=== PATIENT | female | born 1935 | race Caucasian/White ===

== ENCOUNTER → 2024-02-14 | Outpatient (CLI) | payer MEDICARE, MEDICAID, SELFPAY | END | disposition home or self-care (01) | PROVIDERS: Referring Provider Internal Medicine Cardiovascular Disease; Visit Provider Internal Medicine Cardiovascular Disease | DX: I50.22 Chronic systolic (congestive) heart failure (principal) | CPT/HCPCS: 36415; 80069 ==

== ENCOUNTER 2024-05-09 23:45 | Inpatient (IN) | payer MEDICARE, MEDICAID, SELFPAY ==
[2024-05-09 23:49] VITALS: BP 153/97; PULSE 106; RESP 24; O2SAT 93
[2024-05-10] VITALS (18 sets, daily range): BP systolic 108–137; BP diastolic 67–89; PULSE 60–125; RESP 15–28; TEMP 36.1–38.4; O2SAT 92–100; BMI 23.9
--- NOTE | 2024-05-10 00:38 | XR_ITS ---
Examination: AP chest single view Technique one AP portable semiupright chest single view Exam date and time: May 10, 2024 0114 hours Comparison December 17, 2023 INDICATIONS: Shortness of breath today. FINDINGS: Moderate CHF Enlarged cardiac contour with prominent vascular congestion and perihilar edema Consider superimposed pneumonia at the right base Cardiac leads partly visualized IMPRESSION: Moderate CHF Suspicious for superimposed pneumonia right
[2024-05-10 01:14] LABS: Basophils % (Auto) 1 % (0-2.5); Eosinophils % (Auto) 0 % (0-10); Hematocrit 28.4 % (36.0-46.0); Hemoglobin 9.4 g/dL (12.0-16.0); Immature Granulocytes % (Auto) 1 % (0-0); Immature Granulocytes Auto 0.02 Thou/mm3 (0.00-0.00); Lymphocytes # (Auto) 0.7 Thou/mm3 (1.0-4.8); Lymphocytes % (Auto) 17 % (10-50); Mean Corpuscular HGB Conc 33.1 g/dl (31.0-37.0); Mean Corpuscular Hemoglobin 34.4 pg (25.0-35.0); Mean Corpuscular Volume 104 fL (80-100); Monocytes # (Auto) 0.3 Thou/mm3 (0.0-0.8); Monocytes % (Auto) 8 % (0-12); Neutrophils # (Auto) 3.1 Thou/mm3 (1.8-7.7); Neutrophils % (Auto) 74 % (37-80); Nucleated Red Blood Cell % 0 /100 WBC (0); Platelet Count 147 Thou/mm3 (140-440); RDW Standard Deviation 65.2 fL (36.4-46.3); Red Blood Count 2.73 Miln/mm3 (4.00-5.20); White Blood Count 4.2 Thou/mm3 (3.6-11.0)
[2024-05-10 01:33] LABS: B-Type Natriuretic Peptide > 3280 pg/mL (0-100)
[2024-05-10 03:10] LABS: Alanine Aminotransferase 12 U/L (10-49); Albumin, Serum 4.8 gm/dL (3.4-4.8); Alkaline Phosphatase 47 U/L (46-116); Anion Gap 9 (7-16); Aspartate Amino Transferase 29 U/L (0-34); BUN/Creatinine Ratio 24 Ratio (12-20); Bilirubin,Total 0.5 mg/dL (0.3-1.2); Blood Urea Nitrogen 34 mg/dL (9-23); Calcium 9.7 mg/dL (8.3-10.6); Calcium (Corrected) 9.7 mg/dL (8.5-10.1); Carbon Dioxide 30.5 mMol/L (20.0-31.0); Chloride 98 mMol/L (98-107); Creatinine (Component) 1.4 mg/dL (0.6-1.3); Globulin 2.4 gm/dL (2.3-3.5); Glucose 139 mg/dL (74-106); Lipase 49 U/L (12-53); Osmolality,Calculated 283 (275-295); Potassium 4.2 mMol/L (3.4-5.1); Sodium 137 mMol/L (136-145); Total Protein 7.2 gm/dL (5.7-8.2); Troponin I 0.023 ng/mL (0.0-0.045); eGFR 36 See Note
--- NOTE | 2024-05-10 05:20 | PD.EDRME ---
Rapid Medical Screening Exam RME Arrival date/time: 05/09/24 23:45 Chief Complaint: Shortness of Breath/Dyspnea Vital signs: Vital Signs Pulse Rate 106 H 05/09/24 23:49 Respiratory Rate 24 H 05/09/24 23:49 Blood Pressure 153/97 H 05/09/24 23:49 Pulse Oximetry (%) 93 L 05/09/24 23:49 Oxygen Delivery Method Oxy Mask 05/09/24 23:49 Oxygen Flow Rate 15 05/09/24 23:49 Vital signs reviewed by provider: Yes E Narrative: 88-year-old female with history of CHF, COPD, atrial fibrillation coming in with 1 week history of shortness of breath.
[2024-05-10] MEDS: MethylPREDNISolone SOD SUCC 62.5 MG/ML 2ML VIAL 125 MG IVP (05:44)
[2024-05-10] MEDS: FUROSEMIDE INJ 10 MG/ML 4ML VIAL 40 MG IVP (05:45)
--- NOTE | 2024-05-10 05:59 | PC.NURSE ---
PATIENT HAS A DIME SIZE STAGE II ULCER ON RIGHT BUTTOCK. AREA CLEANED AND DRSG APPLIED. DAUGHTER TOLD TO MAKE APPOINTMENT WITH PMD FOR HIM TO MAKE RECOMMENDATIONS FOR MORE CARE.
--- NOTE | 2024-05-10 06:01 | PC.NURSE ---
purewick in place
--- NOTE | 2024-05-10 07:12 | PD.EDSOB ---
ED SOB =RME/HPI General Chief Complaint: Shortness of Breath/Dyspnea Stated Complaint: SOB Time Seen by Provider: 05/10/24 08:38 Arrival date/time: 05/09/24 23:45 RME / HPI RME / HPI Narrative: 88-year-old female with history of CHF, COPD, atrial fibrillation coming in with 1 week history of shortness of breath. DR. CHAN MAIN ED EVALUATION 88 year old female with history of COPD on 3-5L home oxygen, HFrEF 30-35% 12/2023, AFib, s/p pacemaker placement, hypertension presents to the ED for evaluation of shortness of breath today. Per daughter, patient has felt short of breath for 1 week. State at home patient is using her oxygen and nebulizer without improvement. Last night noticed leg swelling and worsening shortness of breath with gurgling sounds per daughter, prompting ED visit. Accompanied by a cough although reports is chronic and unchanged. Per EMS triage note, on scene patient was saturating 52% on 5L nasal cannula and placed on 15L Oxy Mask. Patient denies Denies fever, chills, sweating. Denies chest pain. Denies nausea, vomiting, diarrhea, constipation. Denies dysuria, urinary frequency and urgency. Related Data Home Medications ?Medication ?Instructions ?Recorded ?Confirmed amiodarone 200 mg tablet 200 mg PO BID 07/29/20 12/13/23 carvedilol 3.125 mg tablet (Coreg) 3.125 mg PO BID 07/29/20 12/13/23 sacubitril 24 mg-valsartan 26 mg 1 tab PO BID 07/29/20 12/13/23 tablet (Entresto) meclizine 25 mg tablet 25 mg PO QID PRN Dizziness 11/10/22 12/13/23 Previous Rx's ?Medication ?Instructions ?Recorded bumetanide 1 mg tablet 1 mg PO QDAY #14 tabs 11/12/22 Allergies Allergy/AdvReac Type Severity Reaction Status Date / Time ceftriaxone AdvReac Severe Unresponsiv Verified 05/10/24 09:02 e Review of Systems Review of Systems Narrative Review of Systems: GEN: No fever, no chills, no weight loss EYES: No discharge, no visual changes, no pain HEENT: No ear pain, no congestion, no sore throat PULM: +cough, +shortness of breath CV: No chest pain, no palpitations GI: No nausea, no vomiting, no diarrhea, no pain, no constipation : No frequency, no urgency, no dysuria MUSC/SKEL: +leg swelling. No joint pain, no back pain SKIN: No rash PSYCH: No hallucinations, no depression HEME/LYMPH: No easy bleeding or bruising tendencies NEURO: No weakness, no headache Past Medical History Past Medical History CARDIAC: Positive Atrial Fibrillation, Congestive Heart Failure, Edema and Hypertension RESPIRATORY: Positive Chronic Obstructive Pulmonary Disease (COPD) and Pneumonia GASTROINTESTINAL: Positive Gastroesophageal Reflux Disease REPRODUCTIVE: Positive Previous Pregnancies MUSCULOSKELETAL: Positive Musculoskeletal Disorders, Arthritis and Fractures ENT: Positive Cataracts OTHER HISTORY: Positive Hospitalization, Falls, Chicken Pox, Measles and Mumps Family History FAMILY HISTORY: Positive Family Cardiac Disorders and Family Cancer Surgical History SURGICAL: Positive Cardiac Surgery, Pacemaker, Angiogram and Hysterectomy Social History SMOKING STATUS: Never smoker SECOND HAND EXPOSURE: No SUBSTANCE USE: does not use ED Exam Narrative Physical exam: GENERAL APPEARANCE: alert and oriented x 4, well-developed, well-nourished, appears to be in respiratory distress HEENT: Normocephalic, atraumatic; pupils equal, round, reactive to light; EOMI; mucous membranes pink, moist; oropharynx clear NECK: Supple LUNGS: Coarse breath sounds, rhonchi; no wheezes, no rales HEART: Regular rate, regular rhythm; normal S1, S2; no murmurs ABDOMEN: non distended; normal BS; soft, no tenderness, no guarding, no rebound; no masses, no organomegaly, no hernia BACK: no CVA tenderness EXTREMITIES: atraumatic;BLE 2+ pitting edema NEUROLOGIC: awake; alert and oriented x4; cranial nerves II-XII grossly intact; no focal sensory or motor deficits PSYCHIATRIC: appropriate mood and affect SKIN: warm, dry, normal color; no rashes Course Course Course Narrative: chest xray ordered to help determine etiology of shortness of breath. Patient spiked a fever of 101.2 while in the ED. Will add on sepsis work-up. Quality Measures Current suspected stage: sepsis Possible source: pulmonary Blood cultures ordered: completed in ED Antibiotic ordered: Yes Pertinent labs: 05/10/24 07:50 Lactic Acid 0.9 mMol/L (0.4-2.0) Procalcitonin 0.27 ng/ml (0.0-0.49) sepsis and none Orders Category Date Time Status Bedside COVID-19 Antigen Test NOW Care 05/10/24 07:11 Active Bedside Influenza A&B Antigen Test NOW Care 05/10/24 07:11 Completed EKG (ED ONLY) *Do not use* NOW Care 05/10/24 00:36 Completed EKG (ED Only) Stat Exams 05/10/24 00:36 Ordered XR chest 1V portable Stat Exams 05/10/24 00:38 Completed B-Type Natriuretic Peptide Stat Lab 05/10/24 00:53 Completed Blood Culture (Lab) Stat Lab 05/10/24 07:50 Received CBC Stat Lab 05/10/24 00:53 Completed Comprehensive Metabolic Panel Stat Lab 05/10/24 00:53 Completed Lactate (Lactic Acid) Stat Lab 05/10/24 07:50 Completed Lipase Stat Lab 05/10/24 00:53 Completed Procalcitonin Stat Lab 05/10/24 07:50 Completed Troponin I Stat Lab 05/10/24 00:53 Completed Urinalysis Stat Lab 05/10/24 07:08 Ordered Urine Culture Stat Lab 05/10/24 07:50 Received Acetaminophen Tab [Tylenol ES Tab] Med 05/10/24 07:09 Discontinued 1,000 mg PO X1 ONE Azithromycin Inj [Zithromax Inj] 500 mg Med 05/10/24 07:09 Discontinued Sodium Chloride 0.9% 250 ml [Ns] 250 ml IV X1 Furosemide Inj [Lasix Inj] Med 05/10/24 05:20 Discontinued 40 mg IVP X1 ONE MethylPREDNISolone.* [SoluMEDROL Inj] Med 05/10/24 05:21 Discontinued 125 mg IVP X1 ONE cefTRIAXone/D5w 1gm IV premix [Rocephin/D5w 1gm IV Med 05/10/24 09:00 Discontinued premix] 50 ml IV X1 Reevaluation(s) Reevaluation #1: We reviewed all the results, analysis, and treatment plans. Patient is amenable to admission. Time: 10:40 Vital Signs Vital signs: Vital Signs Pulse Rate 106 H 05/09/24 23:49 Respiratory Rate 24 H 05/09/24 23:49 Blood Pressure 153/97 H 05/09/24 23:49 Pulse Oximetry (%) 93 L 05/09/24 23:49 Oxygen Delivery Method Oxy Mask 05/09/24 23:49 Oxygen Flow Rate 15 05/09/24 23:49 Pulse ox was 93% on 15L Oxy Mask on arrival to ED. On reassessment at 07:45 hours patient is saturating 96% on 5L Oxy Mask which is adequate. Shortness of Breath / Dyspnea Patient data External records reviewed:: [facility] previous records (I reviewed admission 12/13/2023 through 12/20/2023 for AFib) and EMS form Clinical information provided by:: patient and family (Daughter) Social determinants that could affect healthcare access:: none Patient has the following chronic illnesses:: COPD on 3-5L home oxygen, HFrEF 30-35% 12/2023, AFib, s/p pacemaker placement, hypertension How is presenting disease/condition affected by chronic disease/condition?: exacerbated by Evaluation data The following diagnostics were reviewed and interpreted by me:: lab results, radiology exam(s) (CXR my interpretation: Pacemaker noted, right infiltrate, vascular congestion, cardiomegaly) and EKG tracing(s) Lab and/or radiology exams considered but not ordered:: None Interpretation Summary: Ordering Physician: Amber Cole MD Date of Service: 05/10/24 Procedure(s): XR chest 1V portable Accession Number(s): [id number] cc: Ricky Montanez MD; Alvarado Lerma MD; Amber Cole MD~ Examination: AP chest single view Technique one AP portable semiupright chest single view Exam date and time: May 10, 2024 0114 hours Comparison December 17, 2023 INDICATIONS: Shortness of breath today. FINDINGS: Moderate CHF Enlarged cardiac contour with prominent vascular congestion and perihilar edema Consider superimposed pneumonia at the right base Cardiac leads partly visualized IMPRESSION: Moderate CHF Suspicious for superimposed pneumonia right Dictated By: Alvarado Lerma MD Signed By: <Electronically signed by Alvarado Lerma MD in OV> 05/10/24 1016 DD/ 1015 TD/TT: 05/10/24 1015 Seconds Grader: DILCIA Medications / Prescriptions Medications or Prescriptions considered but not ordered:: None Medication administrations:: Medication Administration History Acetaminophen (Acetaminophen 325 Mg Tablet) 650 mg PO Q6H PRN PRN Reason: Fever >100.4 or mild pain 1-3 Stop: 06/09/24 10:44 Albuterol/Ipratropium (Albuterol/Ipratropium (Duoneb) Rt Ruma 3 Ml Nebu) 3 ml INH Q2HR PRN PRN Reason: SHORTNESS OF BREATH OR WHEEZE Stop: 06/09/24 10:44 Albuterol/Ipratropium (Albuterol/Ipratropium (Duoneb) Rt Ruma 3 Ml Nebu) 3 ml INH Q6HRRT WILLIE Stop: 06/09/24 12:59 Last Admin: 05/10/24 12:52 Dose: 3 ml Documented By: ARMAND Amiodarone HCl (Amiodarone Hcl 200 Mg Tablet) 200 mg PO BID [facility] Stop: 06/09/24 20:59 Amoxicillin (Amoxicillin 250 Mg Capsule) 500 mg PO BID [facility] Stop: 05/17/24 20:59 Azithromycin (Azithromycin 250 Mg Tablet) 250 mg PO QDAY [facility] Stop: 05/18/24 08:59 Bumetanide (Bumetanide Inj 0.25 Mg/Ml Vial 4 Ml) 1 mg IVP BID [facility] Stop: 06/09/24 20:59 Carvedilol (Carvedilol 3.125 Mg Tablet) 3.125 mg PO BIDWM [facility] Stop: 06/09/24 17:29 Enoxaparin Sodium (Enoxaparin Sod Inj 40 Mg/0.4 Ml Syringe) 40 mg SC QDAY [facility] Stop: 05/25/24 08:59 Sennosides (Senna Tablet) 1 tab PO BID PRN; Protocol PRN Reason: CONSTIPATION Stop: 06/09/24 10:49 Discontinued Medications Acetaminophen (Acetaminophen 500 Mg Tablet) 1,000 mg PO X1 ONE Stop: 05/10/24 07:10 Last Admin: 05/10/24 09:02 Dose: 1,000 mg Documented By: AM Bumetanide (Bumetanide Inj 0.25 Mg/Ml Vial 4 Ml) 1 mg IVP QDAY [facility] Stop: 06/09/24 14:44 Last Admin: 05/10/24 15:03 Dose: Not Given Documented By: DA Non-Admin Reason: Discontinued Furosemide (Furosemide Inj 10 Mg/Ml 4ml Vial) 40 mg IVP X1 ONE Stop: 05/10/24 05:21 Last Admin: 05/10/24 05:45 Dose: 40 mg Documented By: [place] Azithromycin 500 mg/ Sodium (Chloride) 250 mls @ 250 mls/hr IV X1 ONE Stop: 05/10/24 08:08 Last Infusion: 05/10/24 11:00 Dose: Infused Documented By: Admin: 05/10/24 09:04 Dose: 250 mls/hr Documented By: AM Ceftriaxone Sodium/Dextrose (Rocephin/D5w 1gm Iv Premix) 50 mls @ 100 mls/hr IV X1 ONE Stop: 05/10/24 09:29 Last Admin: 05/10/24 10:42 Dose: Not Given Documented By: AM Non-Admin Reason: Cancelled by Provider Levofloxacin/Dextrose (Levaquin Ivpb) 750 mg in 150 mls @ 100 mls/hr IV QDAY [facility] Stop: 05/17/24 14:44 Last Admin: 05/10/24 15:03 Dose: Not Given Documented By: DA Non-Admin Reason: Discontinued Methylprednisolone Sodium Succinate (Methylprednisolone Sod Succ 62.5 Mg/Ml 2ml Vial) 125 mg IVP X1 ONE Stop: 05/10/24 05:22 Last Admin: 05/10/24 05:44 Dose: 125 mg Documented By: KD Pantoprazole Sodium (Pantoprazole Inj 40 Mg Vial) 40 mg IVP QDAY [facility] Stop: 06/09/24 10:59 Last Admin: 05/10/24 12:51 Dose: 40 mg Documented By: AM Sodium Chloride (Sodium Chloride Rt 10% 15 Ml Nebu) 5 ml INH X1 ONE Stop: 05/10/24 15:03 See above Consultations Consultation(s) initiated? (list below): Yes Consultation #1 (Physician, Specialty, Details): I spoke with resident Dr. Arevalo working with Dr. Askew. Discussed patients PMHx, HPI, ED course, exam findings, labs, and radiology results. The hospitalist agree to accept the patient for admission. Time: 10:42 Diagnosis Shortness of Breath Differential Diagnosis: acute exacerbation of chronic obstructive airways disease, congestive heart failure and community acquired pneumonia Most likely diagnosis given after review of the tests above:: CHF exacerbation Pneumonia increase oxygen requirement Admission Indicated Admission indicated?: indicated Admission Request Was there a request for admission?: Yes Admission Attestation Admission request attestation: Discussed case with [] from Hospitalist service regarding admission. Discussed patients ED course, exam findings, labs, and radiology results. The Hospitalist [agrees,declines] to accept the patient for admission. Disposition Plan Disposition Plan: Admit Critical Care Time Critical Care Time Critical Care Time: Yes Total Critical Care Time (min.): 35 Attestation: The high probability of sudden, clinically significant deterioration in the patient's condition required the highest level of my preparedness to intervene urgently. The services I provided to this patient were to treat and/or prevent clinically significant deterioration. Services included the following: chart data review, reviewing nursing notes and/or old charts, documentation time, sql server consultant collaboration regarding findings and treatment options, medication orders and management, direct patient care, vital sign assessments and ordering, interpreting and reviewing diagnostic studies and lab tests. Aggregate critical care time includes only time during which I was engaged in work directly related to the patient's care, as described above, whether at bedside or elsewhere in the Emergency Department. It did not include time spent performing other reported procedures or the services of residents, students, nurses or physician assistants. Discharge Plan Plan Patient Disposition: Admit Acute Care w/in Hospital Problem List Clinical Impression: CHF exacerbation, Pneumonia
[2024-05-10 08:23] LABS: Lactate (Lactic Acid) 0.9 mMol/L (0.4-2.0)
[2024-05-10 08:57] LABS: Procalcitonin 0.27 ng/ml (0.0-0.49)
[2024-05-10] MEDS: ACETAMINOPHEN 500 MG TABLET 1000 MG PO (09:02)
[2024-05-10] MEDS: AZITHROMYCIN INJ 500 MG in SODIUM CHLORIDE 0.9% 250 ML 250 ML 250 MG IV (09:04)
[2024-05-10 12:02] LABS: Magnesium 1.8 mg/dL (1.6-2.6)
[2024-05-10] MEDS: PANTOPRAZOLE INJ 40 MG VIAL IVP (12:51)
[2024-05-10] MEDS: ALBUTEROL/IPRATROPIUM (Duoneb) RT SOL 3 ML NEBU INH ×2 (12:52→19:16)
--- NOTE | 2024-05-10 13:15 | ESHP_ITS ---
Documentation for date of: 05/10/24 [facility] History of Present Illness History of present illness: This is an 88-year-old female PMHx of CHF with EF 30-35% (12/2023), A-fib s/p pacemaker and defibrillator, COPD on 3 L home O2, HTN, presenting after 1 week of worsening swelling, shortness of breath and new onset cough started 2 days ago. History obtained from patient and daughter at bedside. Patient lives with daughter at home and was found desatting in the 80s at home despite home oxygen. He has been taking home daily FUROSEMIDE as prescribed, and started taking BUMEX PRN for worsening lower extremity edema. LE edema, initially improved with BUMEX however seems to have plateaued over the last few days. In addition, she has been having dry cough that started 2 days ago, however today feels more like a wet cough but unable to bring anything up. Last admission was in December 2023 where she is admitted for AHRF and treated for pneumonia and COPD/CHF exacerbation. She follows up with Dr. Mason outpatient who prescribed BUMEX as needed for lower extremity swelling. Review of system positive for subjective fever, orthopnea, SOB, productive cough, and extremity swelling as above. Denies headaches, chills, chest pain, palpitations, focal neurological deficits, loss of appetite, GI symptoms including pain or N/V/D/C, abnormal bleed, dysuria or hematuria. ED COURSE: T101.2, HR 106, BP 153/97, RR 24, satting 93% on 15 L Hgb 9.4 (baseline 10.5), no leukocytosis, PLT 147, no coagulopathies BNP greater than 3280, troponin negative, EKG A-fib with RVR, HR 114 CR 1.4, GFR 36, GLUCOSE 139 UA showed positive leukocyte esterase, WBC 15, rare bacteria CXR showed moderate CHF with suspected superimposed right-sided pneumonia ED gave FUROSEMIDE 40 mg x 1, METHYLPREDNISOLONE 125 x 1, CEFTRIAXONE and AZITHROMYCIN x 1. Hospitalist team was consulted. We will admit patient for AHRF in settings of CHF/COPD exacerbation versus pneumonia. PMHx: CHF, A-fib with pacemaker/defibrillator, COPD on home 3 L, HTN PSHx: Hysterectomy, L hip replacement, Knee replacement, bladder suspension MEDS: BUMEX, SPIRONOLACTONE, ENTRESTO, AMIODARONE, SYNMACORT, ALBUTEROL ALLERGIES: CEFTRIAXONE (unresponsive) SH: Denies tobacco, alcohol, or drug use Exam Vital Signs Temp Pulse Resp BP Pulse Ox O2 Del Method O2 Flow Rate 97.6 F 84 28 H 113/76 100 Oxy Mask 5 05/10/24 12:52 05/10/24 12:54 05/10/24 12:54 05/10/24 12:16 05/10/24 12:54 05/10/24 12:16 05/10/24 12:54 Narrative Exam GENERAL: Appearing elderly male, cachectic, on OxyMask, appears in mild distress due to SOB HEENT: NCAT.?SUKHDEV. Oral mucosa is moist. Patent Nares NECK: Supple, nontender, no thyromegaly, no meningismus, no JVD, no step offs CARDIOVASCULAR: RRR, no m/g/r LUNGS: Bilateral coarse breath sounds and rhonchi. Symmetrical chest rise. No intercostal subcostal retraction. ABDOMEN: Soft, flat, nontender. No guarding/rebound tenderness/masses. +BS EXTREMITIES: 2+ bilateral LE pitting edema with chronic venous stasis and senile purpura. Pulses intact bilaterally. SKIN: Warm and dry, no jaundice/rashes. MSK: No lumbar or midline, no CVA, no paraspinal muscle spasm or tenderness. NEURO: HUA x4, CN II-XII grossly intact.?No focal neurologic deficits. PSYCHIATRIC: Normal mood and affect, cooperative, no SI or HI or hallucinations. Results: Labs 05/10/24 00:53 05/10/24 00:53 Labs: Short CBC 05/10/24 Range/Units 00:53 WBC 4.2 (3.6-11.0) Thou/mm3 Hgb 9.4 L (12.0-16.0) g/dL Hct 28.4 L (36.0-46.0) % Plt Count 147 (140-440) Thou/mm3 BMP 05/10/24 00:53 Sodium 137 Potassium 4.2 Chloride 98 Carbon Dioxide 30.5 BUN 34 H Creatinine 1.4 H Glucose 139 H Calcium 9.7 Cardiac Enzymes 05/10/24 Range/Units 00:53 Troponin I 0.023 (0.0-0.045) ng/mL Liver Function 05/10/24 Range/Units 00:53 Total Bilirubin 0.5 (0.3-1.2) mg/dL AST 29 (0-34) U/L ALT 12 (10-49) U/L Alkaline Phosphatase 47 (46-116) U/L Albumin 4.8 (3.4-4.8) gm/dL Quality Measures Quality Measures sepsis Current suspected stage: sepsis Possible source: pulmonary Blood cultures ordered: completed in ED Antibiotic ordered: Yes and none Advance care planning discussed with:: patient and child Medications Home Medications and Allergies Home Medications ?Medication ?Instructions ?Recorded ?Confirmed ?Type amiodarone 200 mg tablet 200 mg PO BID 07/29/20 05/10/24 History carvedilol 3.125 mg tablet (Coreg) 3.125 mg PO BID 07/29/20 05/10/24 History sacubitril 24 mg-valsartan 26 mg 1 tab PO BID 07/29/20 05/10/24 History tablet (Entresto) meclizine 25 mg tablet 25 mg PO QID PRN Dizziness 11/10/22 05/10/24 History budesonide-formoterol HFA 160 1 puff inhalation QDAY PRN 05/10/24 05/10/24 History mcg-4.5 mcg/actuation aerosol Shortness Of Breath inhaler (Symbicort) bumetanide 1 mg tablet 1 mg PO QDAY 05/10/24 05/10/24 History spironolactone 25 mg tablet 25 mg PO QDAY 05/10/24 05/10/24 History Allergies Allergy/AdvReac Type Severity Reaction Status Date / Time ceftriaxone AdvReac Severe Unresponsiv Verified 05/10/24 09:02 e Visit Medications Acetaminophen (Acetaminophen 325 Mg Tablet) 650 mg PO Q6H PRN PRN Reason: Fever >100.4 or mild pain 1-3 Stop: 06/09/24 10:44 Albuterol/Ipratropium (Albuterol/Ipratropium (Duoneb) Rt Ruma 3 Ml Nebu) 3 ml INH Q2HR PRN PRN Reason: SHORTNESS OF BREATH OR WHEEZE Stop: 06/09/24 10:44 Albuterol/Ipratropium (Albuterol/Ipratropium (Duoneb) Rt Ruma 3 Ml Nebu) 3 ml INH Q6HRRT WILLIE Stop: 06/09/24 12:59 Last Admin: 05/10/24 12:52 Dose: 3 ml Pantoprazole Sodium (Pantoprazole Inj 40 Mg Vial) 40 mg IVP QDAY WILLIE Stop: 06/09/24 10:59 Last Admin: 05/10/24 12:51 Dose: 40 mg Sennosides (Senna Tablet) 1 tab PO BID PRN; Protocol PRN Reason: CONSTIPATION Stop: 06/09/24 10:49 Discontinued Medications Acetaminophen (Acetaminophen 500 Mg Tablet) 1,000 mg PO X1 ONE Stop: 05/10/24 07:10 Last Admin: 05/10/24 09:02 Dose: 1,000 mg Furosemide (Furosemide Inj 10 Mg/Ml 4ml Vial) 40 mg IVP X1 ONE Stop: 05/10/24 05:21 Last Admin: 05/10/24 05:45 Dose: 40 mg Azithromycin 500 mg/ Sodium (Chloride) 250 mls @ 250 mls/hr IV X1 ONE Stop: 05/10/24 08:08 Last Admin: 05/10/24 09:04 Dose: 250 mls/hr Ceftriaxone Sodium/Dextrose (Rocephin/D5w 1gm Iv Premix) 50 mls @ 100 mls/hr IV X1 ONE Stop: 05/10/24 09:29 Last Admin: 05/10/24 10:42 Dose: Not Given Methylprednisolone Sodium Succinate (Methylprednisolone Sod Succ 62.5 Mg/Ml 2ml Vial) 125 mg IVP X1 ONE Stop: 05/10/24 05:22 Last Admin: 05/10/24 05:44 Dose: 125 mg Assessment & Plan Plan In summary: 88-year-old female with PMHx of CHF, EF 30-35% (12/2023), A-fib s/p pacemaker/defibrillator, COPD on 3 L home oxygen, HTN, admitted for AHRF likely 2/2 CHF vs. COPD exacerbation, versus pneumonia. We started BUMEX, ANTIBIOTICS, and breathing treatment. Pending echocardiogram, cultures, and cardiology recommendations. Appreciate recommendation from cardiology. Acute on Chronic hypoxic respiratory failure 2/2: CHF exacerbation VS COPD exacerbation VS Sepsis 2/2 influenza A pneumonia Hx of CHF, EF 30?35 (12/2023) Presenting with 1 week of worsening orthopnea, SOB, LE edema, and cough. Initially dry cough then wet but unable to produce sputum. She is on home 3L oxygen, but found desatting in 80s. She restarted her PRN BUMEX with some improvement in edema initially. On exam, 2+ bilateral LE edema, bilateral lung crackles. BNP greater than 3280, troponin negative, CXR shows congestion and superimposed right pneumonia. 2/4 SIRS positive with fever and tachycardia, suspected source pneumonia. Positive influenza A. She had 250 cc urine output after 1X LASIX 40 IV. S/p AZITHROMYCIN and CEFTRIAXONE in ED. Patient has allergies to CEFTRIAXONE. Denies current active smoking. TSH 1.09 from 12/2023. Normal lipid panel from 09/2023. ? Holding home ENTRESTO BID ? Started BUMEX 1 mg BID (home dose 1 mg daily) ? Started AZITHROMYCIN 250 mg (05/10 to [present]) ? Started AMOXICILLIN 500 mg BID (05/10 to [present]) ? DuoNebs Q6H scheduled, Q2H PRN ? Strict ANTONI's ? Fluid restriction 1500 cc daily ? Pending echocardiogram ? Pending panculture, MRSA swab, cocci, COVID ? Pending cardiology recommendations A-fib with RVR, rate controlled Paroxysmal A-fib HTN History of paroxysmal A-fib. Admission EKG showed fib RVR with HR 114. Currently rate controlled. Currently asymptomatic without palpitation or chest pain. Anticipate HTN improvement with diuresis. [id number] 6 indicated 13.6% risk of stroke/TIA/systemic embolism. HAS-BLED 6 indicating high risk for bleed. On previous admission ELIQUIS was held in settings of GI bleed. Unclear if patient has resumed ELIQUIS outpatient. Will defer recommendation to cardiology. ? Resumed home AMIODARONE 200 mg BID ? Resumed home CARVEDILOL as above ? Pending cardiology recommendations for anticoag ? Telemetry Questionable AMBROCIO CKD stage IIIa CR 1.4 (baseline 1.2), GFR 36 (baseline 40-55). Likely prerenal, cardiorenal. Dissipate improvement with diuresis. ? Diuresis as above ? Renally dose meds, avoid overdiuresis and NEPHROTOXINS Asymptomatic pyuria UA showed WBCs, leukocyte esterase, rare bacteria. Patient otherwise asymptomatic. Previously grew Enterococcus faecalis and MDR staph epididymis. Will continue with ANTIBIOTICS as above, adjust as needed based on culture. ? Pending urine culture Health maintenance Diet: Cardiac diet GI prophylaxis: Not indicated DVT prophylaxis: Lovenox Antibiotics: AZITHROMYCIN, AMOX CODE STATUS: DNR Disposition: Pending symptoms improvement, cx, cardio recs. Patient case was discussed with attending, Dr. Bao Askew DO and senior residents Dr. Arevalo and Dr. Bradley. Jose Bullock DO PGYI Attending Provider Attestation/Addendum I have discussed and was present for the essential components of the history, physical examination, diagnosis, and treatment plan with the resident. I agree with the patient's care as documented by the resident and amended herein by me. Seymour Askew DO. Although this document has been carefully reviewed, there may still be some phonetic and other typographical errors. These errors are purely grammatical due to imperfections in the software program and should not be construed in any way to compromise the substance of the patient's medical care during this visit.
[2024-05-10] MEDS: carVEDILOL 3.125 MG TABLET PO (16:33)
[2024-05-10] MEDS: OSELTAMIVIR 30 MG CAPSULE PO (18:07)
[2024-05-10] MEDS: AMIODARONE HCL 200 MG TABLET PO (21:05)
[2024-05-10] MEDS: AMOXICILLIN 250 MG CAPSULE 500 MG PO (21:05)
[2024-05-10] MEDS: BUMETANIDE INJ 0.25 MG/ML VIAL 4 ML 1 MG IVP (21:06)
--- NOTE | 2024-05-10 22:55 | ESCONSULT_ITS ---
RE: ANNEL MONTOYA : 1935 DATE OF CONSULTATION: 05/10/2024 CONSULTING PHYSICIAN: Hospitalist. REASON FOR CONSULTATION: Evaluation of shortness of breath and congestive heart failure. HISTORY OF PRESENT ILLNESS: The patient is an 88-year-old female, who is very well known to me, has a longstanding nonischemic cardiomyopathy, chronic systolic heart failure, status post [employer] defibrillator implantation, valvular heart disease, severe aortic regurgitation as well as moderate mitral regurgitation, usually followed by me on maximal medical management, doing well until recently in the last few days. She has been having increasing shortness of breath, severe orthopnea and shortness of breath with minimal exertion. Initial assessment showed an elevated BNP at 3280. She has anemia, which is chronic. Troponin was negative. Chest x-ray showed mild pulmonary congestion. She is feeling a little bit up after IV diuretic therapy. She is feeling less shortness of breath, but still having very much fatigue, _ Last cardiac echo in 2023 on previous admission showed ejection fraction of 30%-35%, severe aortic regurgitation and moderate mitral regurgitation. ALLERGIES: NONE. MEDICATIONS: Amiodarone 200 mg twice daily, Bumex 1 mg once a day, carvedilol low dose 3.125 mg twice daily, Entresto 24/26 mg one tablet twice daily, and spironolactone 25 mg b.i.d. PAST MEDICAL HISTORY: Nonischemic cardiomyopathy, chronic systolic heart failure, chronic obstructive lung disease, chronic kidney disease, history of atrial fibrillation, paroxysmal, status post [employer] defibrillator implantation, and chronic anemia. SOCIAL HISTORY: The patient is at home living with a daughter, who is supportive. She used to smoke in the past. FAMILY HISTORY: Noncontributory. REVIEW OF SYSTEMS: CARDIOVASCULAR SYSTEM: No chest pain. She has mostly shortness of breath, orthopnea and paroxysmal nocturnal dyspnea. GASTROINTESTINAL: No nausea or vomiting. GENITOURINARY: No frequency or dysuria. CENTRAL NERVOUS SYSTEM: No neurologic symptoms. PHYSICAL EXAMINATION: GENERAL: Well-nourished, thin built, chronically ill, elderly female, alert, awake, in no acute distress. VITAL SIGNS: Blood pressure 110/74, pulse 73, respiratory rate 16, and temperature normal. HEENT: Head is atraumatic and normocephalic. Eyes normal. ENT normal. NECK: Supple. Adjustable JVD is present at 7 cm. . CHEST: Symmetrical. LUNGS: Decreased breath sounds bilaterally. HEART: S1 and S2 regular. S3 gallop. ABDOMEN: Thin and soft. EXTREMITIES: Chronic edema of both feet and shriveling of the skin. GENITOURINARY AND RECTAL: Not performed. VP PACKAGING: Normal. Electrocardiogram showed pacemaker rhythm, PVCs, nonspecific ST-T wave changes. Laboratory data showed elevated BNP level. Creatinine 1.4, BUN 34, and creatinine clearance is around 36. CBC showed mild anemia, hemoglobin is 9.4 baseline. IMPRESSION: 1. Acutely decompensated chronic systolic heart failure, ejection fraction 30%- 35%. 2. Moderate to severe aortic regurgitation and moderate mitral regurgitation, valvular heart disease. 3. Nonischemic cardiomyopathy. Negative angiogram. 4. Status post [employer] defibrillator implantation. 5. History of paroxysmal atrial fibrillation. The patient appears to have decompensated congestive heart failure, but may be in some element of pneumonia. RECOMMENDATIONS: Continue antibiotic therapy. Continue to change Bumex oral to IV Bumex 2 mg daily and 1 mg twice daily will be sufficient. Carvedilol can be continued at low dose as well and already on 3.125 mg b.i.d. Depending on the blood pressure, resume Entresto and other medications as well. I would like to thank for referring this pleasant female for cardiovascular evaluation. We will be glad to follow the patient with you. DT: 21::28 TT: 22:28:00 Ref: [id number] - TID: [id number] MTDD
[2024-05-11] VITALS (15 sets, daily range): BP systolic 106–130; BP diastolic 68–89; PULSE 60–95; RESP 18–31; TEMP 36.1–37.1; O2SAT 92–100; BMI 23.1; BMI 22.8
[2024-05-11 05:18] LABS: Basophils % (Auto) 0 % (0-2.5); Eosinophils % (Auto) 0 % (0-10); Hematocrit 25.7 % (36.0-46.0); Hemoglobin 8.5 g/dL (12.0-16.0); Immature Granulocytes % (Auto) 1 % (0-0); Immature Granulocytes Auto 0.04 Thou/mm3 (0.00-0.00); Lymphocytes # (Auto) 1.1 Thou/mm3 (1.0-4.8); Lymphocytes % (Auto) 29 % (10-50); Mean Corpuscular HGB Conc 33.1 g/dl (31.0-37.0); Mean Corpuscular Volume 103 fL (80-100); Monocytes # (Auto) 0.5 Thou/mm3 (0.0-0.8); Monocytes % (Auto) 13 % (0-12); Neutrophils # (Auto) 2.1 Thou/mm3 (1.8-7.7); Neutrophils % (Auto) 57 % (37-80); Nucleated Red Blood Cell # 0.02 Thou/mm3 (0.00-0.00); Nucleated Red Blood Cell % 1 /100 WBC (0); Platelet Count 152 Thou/mm3 (140-440); RDW Standard Deviation 63.8 fL (36.4-46.3); White Blood Count 3.7 Thou/mm3 (3.6-11.0)
[2024-05-11 06:14] LABS: Alanine Aminotransferase 17 U/L (10-49); Albumin, Serum 3.8 gm/dL (3.4-4.8); Albumin/Globulin Ratio 1.4 (1.2-2.2); Alkaline Phosphatase 39 U/L (46-116); Anion Gap 8 (7-16); Aspartate Amino Transferase 29 U/L (0-34); BUN/Creatinine Ratio 31 Ratio (12-20); Bilirubin,Total 0.4 mg/dL (0.3-1.2); Blood Urea Nitrogen 44 mg/dL (9-23); Calcium 9.1 mg/dL (8.3-10.6); Calcium (Corrected) 9.3 mg/dL (8.5-10.1); Carbon Dioxide 31.2 mMol/L (20.0-31.0); Chloride 100 mMol/L (98-107); Creatinine (Component) 1.4 mg/dL (0.6-1.3); Estimated Creatinine Clearance 24.4 mL/min (>60); Globulin 2.7 gm/dL (2.3-3.5); Glucose 99 mg/dL (74-106); Osmolality,Calculated 288 (275-295); Potassium 3.9 mMol/L (3.4-5.1); Sodium 139 mMol/L (136-145); Total Protein 6.5 gm/dL (5.7-8.2); eGFR 36 See Note
[2024-05-11] MEDS: OSELTAMIVIR 30 MG CAPSULE PO (09:12)
[2024-05-11] MEDS: carVEDILOL 3.125 MG TABLET PO ×2 (09:13→18:18)
[2024-05-11] MEDS: AMOXICILLIN 250 MG CAPSULE 500 MG PO ×2 (09:14→20:48)
[2024-05-11] MEDS: SACUBITRIL 24 MG/VALSARTAN 26 MG TABLET 1 TAB PO ×2 (09:14→20:48)
[2024-05-11] MEDS: AZITHROMYCIN 250 MG TABLET PO (09:14)
[2024-05-11] MEDS: POTASSIUM CHLORIDE 20 mEq TABCR PO (09:14)
[2024-05-11] MEDS: ENOXAPARIN SOD INJ 40 MG/0.4 ML SYRINGE SC (09:14)
[2024-05-11] MEDS: AMIODARONE HCL 200 MG TABLET PO ×2 (09:14→20:48)
[2024-05-11] MEDS: BUMETANIDE INJ 0.25 MG/ML VIAL 4 ML 1 MG IVP ×2 (09:15→20:30)
[2024-05-11] MEDS: CYANOCOBALAMIN INJ 1,000 mCg/ML VIAL 1000 MCG IM (09:36)
--- NOTE | 2024-05-11 12:43 | ESPR_ITS ---
<Statement entered by Natacha Mason MD - 05/12/24 15:04> I personally evaluated the patient along with resident physician Dr. Maninder Fischer, PGY 2 agree with the treatment plan recommendation as documented continue diuretic therapy monitor the patient closely for arrhythmias Documentation for date of: 05/11/24 Subjective Subjective Interval history: Patient seen and assessed at bedside. Patient reports still having shortness of breath. Patient is on 4 L, she states she uses 3 to 4 L at home. Patient denying any chest pain or palpitations at this time. Exam Vital Signs Temp Pulse Resp BP Pulse Ox O2 Del Method O2 Flow Rate 97.6 F 79 19 118/81 92 L Nasal Cannula 5 05/11/24 08:00 05/11/24 12:00 05/11/24 08:00 05/11/24 09:15 05/11/24 08:00 05/11/24 08:00 05/11/24 08:00 Narrative Exam GENERAL: Elderly appearing female. On oxy mask saturating well on 4 L. CARDIOVASCULAR: RRR, systolic murmur cardiac apex. No rubs or gallops. LUNGS: Decreased breath sounds bilaterally. EXTREMITIES: No edema noted lower extremities. Chronic venous stasis. SKIN: Warm and dry, no jaundice/rashes. Objective Labs 05/11/24 04:19 05/11/24 04:19 Labs: Laboratory Results - last 24 hr 05/11/24 04:19 WBC 3.7 RBC 2.50 L Hgb 8.5 L Hct 25.7 L MCV 103 H MCH 34.0 MCHC 33.1 RDW Std Deviation 63.8 H Plt Count 152 Neut % (Auto) 57 Lymph % (Auto) 29 [place] % (Auto) 13 H Eos % (Auto) 0 Baso % (Auto) 0 Neut # (Auto) 2.1 Lymph # (Auto) 1.1 [place] # (Auto) 0.5 Eos # (Auto) 0.0 Baso # (Auto) 0.0 Immature Gran # (Auto) 0.04 H Absolute Nucleated RBC 0.02 H Immature Gran % 1 H Nucleated RBC % 1 H Sodium 139 Potassium 3.9 Chloride 100 Carbon Dioxide 31.2 H Anion Gap 8 BUN 44 H Creatinine 1.4 H Estim Creat Clear Calc 24.4 L eGFR 36 L BUN/Creatinine Ratio 31 H Glucose 99 Calculated Osmolality 288 Calcium 9.1 Corrected Calcium 9.3 Phosphorus 5.0 Magnesium 2.0 Total Bilirubin 0.4 AST 29 ALT 17 Alkaline Phosphatase 39 L Total Protein 6.5 Albumin 3.8 D Globulin 2.7 Albumin/Globulin Ratio 1.4 Quality Measures Quality Measures sepsis Current suspected stage: sepsis Possible source: pulmonary Blood cultures ordered: completed in ED Antibiotic ordered: Yes and none Advance care planning discussed with:: patient Assessment & Plan Assessment Current Active Medications: Generic Name Dose Route Start Last Admin Trade Name Freq PRN Reason Stop Dose Admin Acetaminophen 650 mg 05/10/24 10:45 Acetaminophen 325 Mg Tablet PO 06/09/24 10:44 Q6H PRN Fever >100.4 or mild pain 1-3 Albuterol/Ipratropium 3 ml 05/10/24 10:45 Albuterol/Ipratropium (Duoneb) Rt Ruma 3 Ml Nebu INH 06/09/24 10:44 Q2HR PRN SHORTNESS OF BREATH OR WHEEZE Albuterol/Ipratropium 3 ml 05/10/24 13:00 05/11/24 12:20 Albuterol/Ipratropium (Duoneb) Rt Ruma 3 Ml Nebu INH 06/09/24 12:59 Not Given Q6HRRT WILLIE Amiodarone HCl 200 mg 05/10/24 21:00 05/11/24 09:14 Amiodarone Hcl 200 Mg Tablet PO 06/09/24 20:59 200 mg BID WILLIE Administration Amoxicillin 500 mg 05/10/24 21:00 05/11/24 09:14 Amoxicillin 250 Mg Capsule PO 05/17/24 20:59 500 mg BID WILLIE Administration Azithromycin 250 mg 05/11/24 09:00 05/11/24 09:14 Azithromycin 250 Mg Tablet PO 05/18/24 08:59 250 mg QDAY WILLIE Administration Balsam [place]/Mobile Oil 0 gm 05/11/24 21:00 Balsam [place]/Mobile Oil (Venelex) 60 Gm Tube TOP 06/10/24 20:59 BID WILLIE Bumetanide 1 mg 05/10/24 21:00 05/11/24 09:15 Bumetanide Inj 0.25 Mg/Ml Vial 4 Ml IVP 06/09/24 20:59 1 mg BID WILLIE Administration Carvedilol 3.125 mg 05/10/24 17:30 05/11/24 09:13 Carvedilol 3.125 Mg Tablet PO 06/09/24 17:29 3.125 mg BIDWM WILLIE Administration Enoxaparin Sodium 40 mg 05/11/24 09:00 05/11/24 09:14 Enoxaparin Sod Inj 40 Mg/0.4 Ml Syringe SC 05/25/24 08:59 40 mg QDAY WILLIE Administration Melatonin 3 mg 05/11/24 21:00 Melatonin 3 Mg Tablet PO 06/10/24 20:59 HS WILLIE Multi-Ingredient Ointment 0 oz 05/11/24 21:00 Min Oil/Pet,White (Eucerin) Cr 16 Oz Btl TOP 06/10/24 20:59 BID WILLIE Oseltamivir Phosphate 30 mg 05/10/24 18:00 05/11/24 09:12 Oseltamivir 30 Mg Capsule PO 05/17/24 17:59 30 mg QDAY WILLIE Administration Sacubitril/Valsartan 1 tab 05/11/24 09:00 05/11/24 09:14 Sacubitril 24 Mg/Valsartan 26 Mg Tablet PO 06/10/24 08:59 1 tab BID WILLIE Administration Sennosides 1 tab 05/10/24 10:50 Senna Tablet PO 06/09/24 10:49 BID PRN CONSTIPATION Protocol Plan 88-year-old female with PMHx of CHF, EF 30-35% (12/2023), A-fib s/p pacemaker/defibrillator, COPD on 3 L home oxygen, HTN, admitted for AHRF likely 2/2 CHF vs. COPD exacerbation, versus pneumonia. Cardiology consulted for management of CHF and A-fib. #Acute on chronic hypoxic respiratory failure secondary to CHF and pneumonia #HFrEF 30 to 35% #History of A-fib ?Patient on Bumex IV 1 mg twice daily ?Continue patient on Coreg 3.125 twice daily ?Continue patient on Entresto ?Continue patient on Amio 200 twice daily ?[id number] score of? 5, 10% stroke risk ?Would recommend patient be started on spironolactone should blood pressure permits. ?Patient would benefit from anticoagulation as long as there are no active signs of bleeding. Given age and weight Eliquis 2.5 mg twice daily would be ideal. ?Keep potassium above 4 and magnesium above 2 #AMBROCIO #Pneumonia #COPD exacerbation #Hypertension To be managed by primary team Case discussed with geometrician Dr. Marlon Fischer MD PGY3.
--- NOTE | 2024-05-11 13:36 | ESPR_ITS ---
Documentation for date of: 05/11/24 Subjective Subjective Interval history: No acute overnight events. Difficulty sleeping overnight due to agitation. Feels better today in terms of breathing, denies shortness of breath. Denies fever, chills, headaches, chest pain, worsening sob, cough, GI or urinary symptoms. Exam Vital Signs Temp Pulse Resp BP Pulse Ox O2 Del Method O2 Flow Rate 97.2 F 82 20 112/68 100 Oxy Mask 4 05/11/24 12:00 05/11/24 12:05/11/24 12:05/11/24 12:05/11/24 12:05/11/24 12:05/11/24 12:00 Narrative Exam GENERAL: Appearing elderly male, cachectic, on OxyMask, no apparent distress HEENT: NCAT.?SUKHDEV. Oral mucosa is moist. Patent Nares NECK: Supple, nontender, no thyromegaly, no meningismus, no JVD, no step offs CARDIOVASCULAR: RRR, no m/g/r LUNGS: Bilateral coarse breath sounds and rhonchi improving. Symmetrical chest rise. No intercostal subcostal retraction. ABDOMEN: Soft, flat, nontender. No guarding/rebound tenderness/masses. +BS EXTREMITIES: Bilateral lower extremity YULIA resolved, chronic venous stasis and senile purpura. Pulses intact bilaterally. SKIN: Warm and dry, no jaundice/rashes. MSK: No lumbar or midline, no CVA, no paraspinal muscle spasm or tenderness. NEURO: HUA x4, CN II-XII grossly intact.?No focal neurologic deficits. PSYCHIATRIC: Normal mood and affect, cooperative, no SI or HI or hallucinations. Objective Labs 05/12/24 04:43 05/12/24 04:43 Labs: Laboratory Results - last 24 hr 05/11/24 04:19 WBC 3.7 RBC 2.50 L Hgb 8.5 L Hct 25.7 L MCV 103 H MCH 34.0 MCHC 33.1 RDW Std Deviation 63.8 H Plt Count 152 Neut % (Auto) 57 Lymph % (Auto) 29 [place] % (Auto) 13 H Eos % (Auto) 0 Baso % (Auto) 0 Neut # (Auto) 2.1 Lymph # (Auto) 1.1 [place] # (Auto) 0.5 Eos # (Auto) 0.0 Baso # (Auto) 0.0 Immature Gran # (Auto) 0.04 H Absolute Nucleated RBC 0.02 H Immature Gran % 1 H Nucleated RBC % 1 H Sodium 139 Potassium 3.9 Chloride 100 Carbon Dioxide 31.2 H Anion Gap 8 BUN 44 H Creatinine 1.4 H Estim Creat Clear Calc 24.4 L eGFR 36 L BUN/Creatinine Ratio 31 H Glucose 99 Calculated Osmolality 288 Calcium 9.1 Corrected Calcium 9.3 Phosphorus 5.0 Magnesium 2.0 Total Bilirubin 0.4 AST 29 ALT 17 Alkaline Phosphatase 39 L Total Protein 6.5 Albumin 3.8 D Globulin 2.7 Albumin/Globulin Ratio 1.4 Quality Measures Quality Measures sepsis Current suspected stage: ruled out Possible source: pulmonary Blood cultures ordered: completed in ED Antibiotic ordered: Yes and none Advance care planning discussed with:: patient Assessment & Plan Assessment Current Active Medications: Generic Name Dose Route Start Last Admin Trade Name Freq PRN Reason Stop Dose Admin Acetaminophen 650 mg 05/10/24 10:45 Acetaminophen 325 Mg Tablet PO 06/09/24 10:44 Q6H PRN Fever >100.4 or mild pain 1-3 Albuterol/Ipratropium 3 ml 05/10/24 10:45 Albuterol/Ipratropium (Duoneb) Rt Ruma 3 Ml Nebu INH 06/09/24 10:44 Q2HR PRN SHORTNESS OF BREATH OR WHEEZE Albuterol/Ipratropium 3 ml 05/10/24 13:00 05/11/24 12:20 Albuterol/Ipratropium (Duoneb) Rt Ruma 3 Ml Nebu INH 06/09/24 12:59 Not Given Q6HRRT WILLIE Amiodarone HCl 200 mg 05/10/24 21:00 05/11/24 09:14 Amiodarone Hcl 200 Mg Tablet PO 06/09/24 20:59 200 mg BID WILLIE Administration Amoxicillin 500 mg 05/10/24 21:00 05/11/24 09:14 Amoxicillin 250 Mg Capsule PO 05/17/24 20:59 500 mg BID WILLIE Administration Azithromycin 250 mg 05/11/24 09:00 05/11/24 09:14 Azithromycin 250 Mg Tablet PO 05/18/24 08:59 250 mg QDAY WILLIE Administration Balsam [place] Oil 0 gm 05/11/24 21:00 Balsam [place] Oil (Venelex) 60 Gm Tube TOP 06/10/24 20:59 BID WILLIE Bumetanide 1 mg 05/10/24 21:00 05/11/24 09:15 Bumetanide Inj 0.25 Mg/Ml Vial 4 Ml IVP 06/09/24 20:59 1 mg BID WILLIE Administration Carvedilol 3.125 mg 05/10/24 17:30 05/11/24 09:13 Carvedilol 3.125 Mg Tablet PO 06/09/24 17:29 3.125 mg BIDWM WILLIE Administration Enoxaparin Sodium 40 mg 05/11/24 09:00 05/11/24 09:14 Enoxaparin Sod Inj 40 Mg/0.4 Ml Syringe SC 05/25/24 08:59 40 mg QDAY WILLIE Administration Melatonin 3 mg 05/11/24 21:00 Melatonin 3 Mg Tablet PO 06/10/24 20:59 HS WILLIE Multi-Ingredient Ointment 0 oz 05/11/24 21:00 Min Oil/Pet,White (Eucerin) Cr 16 Oz Btl TOP 06/10/24 20:59 BID WILLIE Oseltamivir Phosphate 30 mg 05/10/24 18:00 05/11/24 09:12 Oseltamivir 30 Mg Capsule PO 05/17/24 17:59 30 mg QDAY WILLIE Administration Sacubitril/Valsartan 1 tab 05/11/24 09:00 05/11/24 09:14 Sacubitril 24 Mg/Valsartan 26 Mg Tablet PO 06/10/24 08:59 1 tab BID WILLIE Administration Sennosides 1 tab 05/10/24 10:50 Senna Tablet PO 06/09/24 10:49 BID PRN CONSTIPATION Protocol Plan In summary: 88-year-old female with PMHx of CHF, EF 30-35% (12/2023), A-fib s/p pacemaker/defibrillator, COPD on 3 L home oxygen, HTN, admitted for AHRF likely 2/2 CHF vs. COPD exacerbation, versus pneumonia. She was using home PRN BUMEX for lower extremity edema and shortness of breath, had some improvement in edema, but persistent shortness of breath. On admission BNP elevated 3280, troponin negative, chest x-ray showed congestion. Superimposed with pneumonia. She was 2/4 SIRS positive with fever and tachycardia which have resolved. Positive influenza A, negative COVID, cocci pending. Appreciate recommendation from cardiology. Acute on Chronic hypoxic respiratory failure 2/2: CHF exacerbation VS COPD exacerbation VS Sepsis 2/2 influenza A pneumonia Hx of CHF, EF 30?35 (12/2023) Etiology evaluation showed EF 30-35%, she continued on BUMEX, ENTRESTO and CARVEDILOL. Edema nearly resolved, lung exams improving crackles, continued on 4 L NC, satting okay. TSH 1.09 from 12/2023. Normal lipid panel from 09/2023. Anticipate improvement with management as below. ? Continue home ENTRESTO BID ? Continue BUMEX 1 mg BID ? Continue AZITHROMYCIN 250 mg (05/10 to [present]) ? Continue AMOXICILLIN 500 mg BID (05/10 to [present]) ? Continue TAMIFLU (05/10 to [present]) ? Continue DuoNebs Q6H scheduled, Q2H PRN ? Strict ANTONI's ? Fluid restriction 1500 cc daily ? Pending panculture, MRSA swab, cocci, COVID A-fib with RVR, rate controlled Paroxysmal A-fib HTN History of paroxysmal A-fib. Admission EKG showed fib RVR with HR 114. Currently rate controlled. Currently asymptomatic without palpitation or chest pain. Anticipate HTN improvement with diuresis. [id number] 6 indicated 13.6% risk of stroke/TIA/systemic embolism. HAS-BLED 6 indicating high risk for bleed. On previous admission ELIQUIS was held in settings of GI bleed. Cardiology recommended ELIQUIS, srinivasan refused due to previous hx of GI bleed. Patient okay with LOVENOX DVT prophylaxis. ? Continue home AMIODARONE 200 mg BID ? Continue home CARVEDILOL as above ? Telemetry Less likely AMBROCIO CKD stage IIIa CR 1.4 then 1.4 on repeat (baseline 1.2), GFR 36 (baseline 40-55). Management as below. ? Diuresis as above ? Renally dose meds, avoid overdiuresis and NEPHROTOXINS Asymptomatic pyuria UA showed WBCs, leukocyte esterase, rare bacteria. Patient otherwise asymptomatic. Previously grew Enterococcus faecalis and MDR staph epididymis. Will continue with ANTIBIOTICS as above, adjust as needed based on culture. ? Pending urine culture Health maintenance Diet: Cardiac diet GI prophylaxis: Not indicated DVT prophylaxis: LOVENOX Antibiotics: AZITHROMYCIN, AMOX CODE STATUS: DNR Disposition: Pending symptoms improvement, cx, cardio recs. Patient case was discussed with attending, Dr. Bao Askew DO and senior residents Dr. Harvey and Dr. Phelps. Jose Bullock DO PGYI Senior Resident Attestation: We will continue the patient on Bumex 1 mg IV twice daily, and continue to monitor ins and outs, was started on entresto. Continue with azithromycin and tamiflu for flu. Possible DC in 1-2 days if volume status is stable. I discussed with and supervised the internet designer physician involved in the care of this patient. I personally saw and examined the patient and discussed the assessment and plan with the entire medicine team, including my attending. I agree with the assessment and plan as documented above. Duy Phelps MD PGY2 Internal Medicine Attending Provider Attestation/Addendum I have discussed and was present for the essential components of the history, physical examination, diagnosis, and treatment plan with the resident. I agree with the patient's care as documented by the resident and amended herein by me. Seymour Askew DO.: Although this document has been carefully reviewed, there may still be some phonetic and other typographical errors. These errors are purely grammatical due to imperfections in the software program and should not be construed in any way to compromise the substance of the patient's medical care during this visit.
[2024-05-11 14:11] LABS: Cocci Serology, IgM Negative (Negative)
--- NOTE | 2024-05-11 14:26 | PC.SS ---
Update: Patient to discharge within 1-2 days pending improvement.
--- NOTE | 2024-05-11 15:54 | PC.SS ---
PEDIATRIC RADIOLOGIST conducted bedside contact with the patient conduct initial assessment and to discuss discharge planning. Patient confirmed demographic information. Patient resides at home with daughter, Rosalina Solano . Patient utilizes a walker to assist with ambulation. Patient utilizes home oxygen. Patient requires assistance with the completion of ADL?s. Daughter provides assistance with ADL?s and provides transportation on behalf of the patient. Patient?s medical surrogate decision maker is daughter, Rosalina Solano. Patient?s PCP is Dr. Montanez. The patient?s photolithographic stripper is Dr. Barboza. The patient does not participate with dialysis. Patient utilizes [facility] for medication services. Patient has utilized home health in the past, [facility]. Patient receptive to home health if resource is recommended. Discharge plan is for the patient to return home at the time of discharge. Daughter will provide transportation on behalf of the patient. No further intervention required at this time, drug abuse social worker will be available to address any further concerns. Next of Kin: Rosalina Solano D/C Plan: Home
[2024-05-11] MEDS: MELATONIN 3 MG TABLET PO (20:48)
[2024-05-11] MEDS: BALSAM PERU/CASTOR OIL (Venelex) 60 GM TUBE TOP (20:49)
[2024-05-12] VITALS (16 sets, daily range): BP systolic 115–140; BP diastolic 65–90; PULSE 63–108; RESP 18–28; TEMP 36.1–36.8; O2SAT 96–99
[2024-05-12 03:03] LABS: Collection Type, Urine Clean Catch; RBC,Urine 0 /hpf (0-3)
[2024-05-12 03:38] LABS: Bacteria,Urine 1+; Bilirubin,Urine Negative (Negative); Blood,Urine Negative (Negative); Clarity,Urine Clear (Clear/Hazy); Color,Urine Lt-Yellow (Lt Yel-Yel); Glucose, Urine Negative (Negative); Hyaline Casts,Urine < 1 /hpf (0-1); Ketones,Urine Negative (Negative); Leukocyte Esterase,Urine Positive (Negative); Nitrite,Urine Positive (Negative); PH,Urine 5.5 (5.0-7.0); Protein,Urine Negative (Neg - Trace); Specific Gravity,Urine 1.012 (1.001-1.035); Squamous Epithelial Cell,Urine 3 /hpf (0-5); Urobilinogen,Urine Negative mg/dL (0.0-1.0); WBC,Urine 3 /hpf (0-5)
[2024-05-12 06:16] LABS: Basophils % (Auto) 0 % (0-2.5); Eosinophils % (Auto) 0 % (0-10); Hematocrit 28.7 % (36.0-46.0); Hemoglobin 9.4 g/dL (12.0-16.0); Immature Granulocytes % (Auto) 1 % (0-0); Immature Granulocytes Auto 0.03 Thou/mm3 (0.00-0.00); Lymphocytes # (Auto) 1.3 Thou/mm3 (1.0-4.8); Lymphocytes % (Auto) 31 % (10-50); Mean Corpuscular HGB Conc 32.8 g/dl (31.0-37.0); Mean Corpuscular Hemoglobin 33.9 pg (25.0-35.0); Mean Corpuscular Volume 104 fL (80-100); Monocytes # (Auto) 0.5 Thou/mm3 (0.0-0.8); Monocytes % (Auto) 12 % (0-12); Neutrophils # (Auto) 2.4 Thou/mm3 (1.8-7.7); Neutrophils % (Auto) 56 % (37-80); Nucleated Red Blood Cell # 0.03 Thou/mm3 (0.00-0.00); Nucleated Red Blood Cell % 1 /100 WBC (0); Platelet Count 127 Thou/mm3 (140-440); RDW Standard Deviation 64.7 fL (36.4-46.3); Red Blood Count 2.77 Miln/mm3 (4.00-5.20); White Blood Count 4.2 Thou/mm3 (3.6-11.0)
[2024-05-12] MEDS: ALBUTEROL/IPRATROPIUM (Duoneb) RT SOL 3 ML NEBU INH ×2 (06:23→19:42)
[2024-05-12 06:47] LABS: Alanine Aminotransferase 21 U/L (10-49); Albumin/Globulin Ratio 1.4 (1.2-2.2); Alkaline Phosphatase 39 U/L (46-116); Anion Gap 9 (7-16); Aspartate Amino Transferase 49 U/L (0-34); BUN/Creatinine Ratio 38 Ratio (12-20); Bilirubin,Total 0.4 mg/dL (0.3-1.2); Blood Urea Nitrogen 53 mg/dL (9-23); Calcium 9.1 mg/dL (8.3-10.6); Calcium (Corrected) 9.1 mg/dL (8.5-10.1); Carbon Dioxide 31.2 mMol/L (20.0-31.0); Chloride 99 mMol/L (98-107); Creatinine (Component) 1.4 mg/dL (0.6-1.3); Estimated Creatinine Clearance 24.4 mL/min (>60); Globulin 2.9 gm/dL (2.3-3.5); Glucose 90 mg/dL (74-106); Magnesium 2.1 mg/dL (1.6-2.6); Osmolality,Calculated 291 (275-295); Phosphorous 4.3 mg/dL (2.4-5.1); Potassium 4.1 mMol/L (3.4-5.1); Sodium 139 mMol/L (136-145); Total Protein 6.9 gm/dL (5.7-8.2); eGFR 36 See Note
[2024-05-12] MEDS: BUMETANIDE INJ 0.25 MG/ML VIAL 4 ML 1 MG IVP ×2 (08:53→20:36)
[2024-05-12] MEDS: SACUBITRIL 24 MG/VALSARTAN 26 MG TABLET 1 TAB PO ×2 (08:55→20:35)
[2024-05-12] MEDS: AMOXICILLIN 250 MG CAPSULE 500 MG PO ×2 (08:55→20:36)
[2024-05-12] MEDS: carVEDILOL 3.125 MG TABLET PO ×2 (08:55→17:24)
[2024-05-12] MEDS: BALSAM PERU/CASTOR OIL (Venelex) 60 GM TUBE TOP ×2 (08:55→20:36)
[2024-05-12] MEDS: AZITHROMYCIN 250 MG TABLET PO (08:55)
[2024-05-12] MEDS: AMIODARONE HCL 200 MG TABLET PO ×2 (08:56→20:35)
[2024-05-12] MEDS: OSELTAMIVIR 30 MG CAPSULE PO (09:01)
[2024-05-12] MEDS: ENOXAPARIN SOD INJ 30 MG/0.3 ML SYRINGE SC (09:42)
--- NOTE | 2024-05-12 10:31 | ESPR_ITS ---
<Statement entered by Natacha Mason MD - 05/12/24 15:04> I personally evaluated the patient along with resident physician Dr. Maninder Fischer, PGY 2 agree with the treatment plan recommendation as documented continue diuretic therapy monitor the patient closely for arrhythmias Documentation for date of: 05/12/24 Subjective Subjective Interval history: Patient seen and assessed at bedside this morning. Patient saturating mid 90s on 3 L oxy mask. Daughter at bedside mentions that they do not like Eliquis as she frequently starts bleeding from GI or vaginal canal, and also patient has recently had falls. Patient otherwise denies any chest pain or palpitations. Exam Vital Signs Temp Pulse Resp BP Pulse Ox O2 Del Method O2 Flow Rate 98.2 F 108 H 26 H 138/90 H 99 Nasal Cannula 4 05/12/24 08:00 05/12/24 08:56 05/12/24 08:00 05/12/24 08:56 05/12/24 08:00 05/12/24 08:00 05/12/24 08:00 Narrative Exam GENERAL: Elderly appearing female. On oxy mask saturating well on 4 L. CARDIOVASCULAR: RRR, systolic murmur cardiac apex. No rubs or gallops. LUNGS: Decreased breath sounds bilaterally. EXTREMITIES: No edema noted lower extremities. Chronic venous stasis. SKIN: Warm and dry, no jaundice/rashes. Objective Labs 05/12/24 04:43 05/12/24 04:43 Labs: Laboratory Results - last 24 hr 05/10/24 05/12/24 05/12/24 18:44 02:10 04:43 WBC 4.2 RBC 2.77 L Hgb 9.4 L Hct 28.7 L MCV 104 H MCH 33.9 MCHC 32.8 RDW Std Deviation 64.7 H Plt Count 127 L Neut % (Auto) 56 Lymph % (Auto) 31 [place] % (Auto) 12 Eos % (Auto) 0 Baso % (Auto) 0 Neut # (Auto) 2.4 Lymph # (Auto) 1.3 [place] # (Auto) 0.5 Eos # (Auto) 0.0 Baso # (Auto) 0.0 Immature Gran # (Auto) 0.03 H Absolute Nucleated RBC 0.03 H Immature Gran % 1 H Nucleated RBC % 1 H Sodium 139 Potassium 4.1 Chloride 99 Carbon Dioxide 31.2 H Anion Gap 9 BUN 53 H Creatinine 1.4 H Estim Creat Clear Calc 24.4 L eGFR 36 L BUN/Creatinine Ratio 38 H Glucose 90 Calculated Osmolality 291 Calcium 9.1 Corrected Calcium 9.1 Phosphorus 4.3 Magnesium 2.1 Total Bilirubin 0.4 AST 49 H ALT 21 Alkaline Phosphatase 39 L Total Protein 6.9 Albumin 4.0 Globulin 2.9 Albumin/Globulin Ratio 1.4 Ur Collection Type Clean Catch Urine Color Lt-Yellow Urine Clarity Clear Urine pH 5.5 Ur Specific [place] 1.012 Urine Protein Negative Urine Glucose (UA) Negative Urine Ketones Negative Urine Blood Negative Urine Nitrite Positive Urine Bilirubin Negative Urine Urobilinogen (Auto) Negative Ur Leukocyte Esterase Positive Urine RBC 0 Urine WBC 3 Ur Squamous Epith Cells 3 Urine Bacteria 1+ A Hyaline Casts < 1 [place] IgM Ab Negative Quality Measures Quality Measures sepsis Current suspected stage: sepsis Possible source: pulmonary Blood cultures ordered: completed in ED Antibiotic ordered: Yes and none Advance care planning discussed with:: patient and child Assessment & Plan Assessment Current Active Medications: Generic Name Dose Route Start Last Admin Trade Name Freq PRN Reason Stop Dose Admin Acetaminophen 650 mg 05/10/24 10:45 Acetaminophen 325 Mg Tablet PO 06/09/24 10:44 Q6H PRN Fever >100.4 or mild pain 1-3 Albuterol/Ipratropium 3 ml 05/10/24 10:45 Albuterol/Ipratropium (Duoneb) Rt Ruma 3 Ml Nebu INH 06/09/24 10:44 Q2HR PRN SHORTNESS OF BREATH OR WHEEZE Albuterol/Ipratropium 3 ml 05/10/24 13:00 05/12/24 06:23 Albuterol/Ipratropium (Duoneb) Rt Ruma 3 Ml Nebu INH 06/09/24 12:59 3 ml Q6HRRT WILLIE Administration Amiodarone HCl 200 mg 05/10/24 21:00 05/12/24 08:56 Amiodarone Hcl 200 Mg Tablet PO 06/09/24 20:59 200 mg BID WILLIE Administration Amoxicillin 500 mg 05/10/24 21:00 05/12/24 08:55 Amoxicillin 250 Mg Capsule PO 05/17/24 20:59 500 mg BID WILLIE Administration Azithromycin 250 mg 05/11/24 09:00 05/12/24 08:55 Azithromycin 250 Mg Tablet PO 05/18/24 08:59 250 mg QDAY WILLIE Administration Balsam [place] Oil 0 gm 05/11/24 21:00 05/12/24 08:55 Balsam [place] Oil (Venelex) 60 Gm Tube TOP 06/10/24 20:59 1 applicatio BID WILLIE Administration Bumetanide 1 mg 05/10/24 21:00 05/12/24 08:53 Bumetanide Inj 0.25 Mg/Ml Vial 4 Ml IVP 06/09/24 20:59 1 mg BID WILLIE Administration Carvedilol 3.125 mg 05/10/24 17:30 05/12/24 08:55 Carvedilol 3.125 Mg Tablet PO 06/09/24 17:29 3.125 mg BIDWM WILLIE Administration Enoxaparin Sodium 30 mg 05/12/24 09:00 05/12/24 09:42 Enoxaparin Sod Inj 30 Mg/0.3 Ml Syringe SC 05/26/24 08:59 30 mg QDAY WILLIE Administration Melatonin 3 mg 05/11/24 21:00 05/11/24 20:48 Melatonin 3 Mg Tablet PO 06/10/24 20:59 3 mg HS WILLIE Administration Multi-Ingredient Ointment 0 oz 05/11/24 21:00 05/11/24 20:47 Min Oil/Pet,White (Eucerin) Cr 16 Oz Btl TOP 06/10/24 20:59 Not Given BID WILLIE Oseltamivir Phosphate 30 mg 05/10/24 18:00 05/12/24 09:01 Oseltamivir 30 Mg Capsule PO 05/17/24 17:59 30 mg QDAY WILLIE Administration Sacubitril/Valsartan 1 tab 05/11/24 09:00 05/12/24 08:55 Sacubitril 24 Mg/Valsartan 26 Mg Tablet PO 06/10/24 08:59 1 tab BID WILLIE Administration Sennosides 1 tab 05/10/24 10:50 Senna Tablet PO 06/09/24 10:49 BID PRN CONSTIPATION Protocol Spironolactone 25 mg 05/12/24 10:15 Spironolactone 25 Mg Tablet PO 06/11/24 10:14 QDAY WILLIE Plan 88-year-old female with PMHx of CHF, EF 30-35% (12/2023), A-fib s/p pacemaker/defibrillator, COPD on 3 L home oxygen, HTN, admitted for AHRF likely 2/2 CHF vs. COPD exacerbation, versus pneumonia. Cardiology consulted for management of CHF and A-fib. #Acute on chronic hypoxic respiratory failure secondary to CHF and pneumonia #HFrEF 30 to 35% #History of A-fib ?Patient on Bumex IV 1 mg twice daily ?Continue patient on Coreg 3.125 twice daily ?Continue patient on Entresto ?Continue patient on Amio 200 twice daily ?[id number] score of? 5, 10% stroke risk ? Continue spironolactone as tolerated ?Keep potassium above 4 and magnesium above 2 ?Patient interested in taking Eliquis 2.5 mg at this time as she is worried about bleeding. Patient made aware of risks of stroke and she understands risk of not having anticoagulation on board. Daughter present at bedside during conversation. #AMBROCIO #Pneumonia #COPD exacerbation #Hypertension To be managed by primary team Case discussed with speech language assistant Dr. Marlon Fischer MD PGY3.
[2024-05-12] MEDS: SPIRONOLACTONE 25 MG TABLET PO (11:43)
[2024-05-12] MEDS: MIN OIL/PET,WHITE (Eucerin) CR 16 OZ BTL TOP ×2 (12:27→20:36)
[2024-05-12 14:30] LABS: Cocci Serology, IgG Negative (Negative)
--- NOTE | 2024-05-12 14:54 | PD.RESPRO ---
Documentation for date of: 05/12/24 Subjective Subjective Interval history: The patient was interviewed and examined at the bedside this morning. She reported doing well. She denied any SOB, chest pain, lightheadedness, abdominal pain, fever or chills. Exam Vital Signs Temp Pulse Resp BP Pulse Ox O2 Del Method O2 Flow Rate 97.7 F 78 28 H 118/76 99 Oxy Mask 4 05/12/24 12:00 05/12/24 12:00 05/12/24 12:05/12/24 12:05/12/24 12:05/12/24 12:05/12/24 12:00 Narrative Exam General: No acute distress, Alert and Oriented x 3 HEENT: Moist mucous membranes, oropharynx clear Neck: Supple, No masses, No JVD CVS: S1S2 Regular rate and rhythm, No murmurs, rubs or gallops Lungs: Mild bibasilar crackles, no wheeze, Mild rhonchi, Saturating 96% on 2 L oxygen Abd: Soft, NT/ND, +BS, no organomegaly Ext: 1+ bilateral peripheral lower limb edema, warm and well perfused Skin: No rash Psych: Appropriate mood and affect Objective Labs 05/12/24 04:43 05/12/24 04:43 Labs: Laboratory Results - last 24 hr 05/10/24 05/12/24 05/12/24 18:44 02:10 04:43 WBC 4.2 RBC 2.77 L Hgb 9.4 L Hct 28.7 L MCV 104 H MCH 33.9 MCHC 32.8 RDW Std Deviation 64.7 H Plt Count 127 L Neut % (Auto) 56 Lymph % (Auto) 31 [place] % (Auto) 12 Eos % (Auto) 0 Baso % (Auto) 0 Neut # (Auto) 2.4 Lymph # (Auto) 1.3 [place] # (Auto) 0.5 Eos # (Auto) 0.0 Baso # (Auto) 0.0 Immature Gran # (Auto) 0.03 H Absolute Nucleated RBC 0.03 H Immature Gran % 1 H Nucleated RBC % 1 H Sodium 139 Potassium 4.1 Chloride 99 Carbon Dioxide 31.2 H Anion Gap 9 BUN 53 H Creatinine 1.4 H Estim Creat Clear Calc 24.4 L eGFR 36 L BUN/Creatinine Ratio 38 H Glucose 90 Calculated Osmolality 291 Calcium 9.1 Corrected Calcium 9.1 Phosphorus 4.3 Magnesium 2.1 Total Bilirubin 0.4 AST 49 H ALT 21 Alkaline Phosphatase 39 L Total Protein 6.9 Albumin 4.0 Globulin 2.9 Albumin/Globulin Ratio 1.4 Ur Collection Type Clean Catch Urine Color Lt-Yellow Urine Clarity Clear Urine pH 5.5 Ur Specific [place] 1.012 Urine Protein Negative Urine Glucose (UA) Negative Urine Ketones Negative Urine Blood Negative Urine Nitrite Positive Urine Bilirubin Negative Urine Urobilinogen (Auto) Negative Ur Leukocyte Esterase Positive Urine RBC 0 Urine WBC 3 Ur Squamous Epith Cells 3 Urine Bacteria 1+ A Hyaline Casts < 1 Coccidioides IgG Ab Negative Quality Measures Quality Measures sepsis Current suspected stage: ruled out Possible source: pulmonary Blood cultures ordered: completed in ED Antibiotic ordered: Yes and none Advance care planning discussed with:: patient Assessment & Plan Assessment Current Active Medications: Generic Name Dose Route Start Last Admin Trade Name Freq PRN Reason Stop Dose Admin Acetaminophen 650 mg 05/10/24 10:45 Acetaminophen 325 Mg Tablet PO 06/09/24 10:44 Q6H PRN Fever >100.4 or mild pain 1-3 Albuterol/Ipratropium 3 ml 05/10/24 10:45 Albuterol/Ipratropium (Duoneb) Rt Ruma 3 Ml Nebu INH 06/09/24 10:44 Q2HR PRN SHORTNESS OF BREATH OR WHEEZE Albuterol/Ipratropium 3 ml 05/10/24 13:00 05/12/24 12:09 Albuterol/Ipratropium (Duoneb) Rt Ruma 3 Ml Nebu INH 06/09/24 12:59 Not Given Q6HRRT WILLIE Amiodarone HCl 200 mg 05/10/24 21:00 05/12/24 08:56 Amiodarone Hcl 200 Mg Tablet PO 06/09/24 20:59 200 mg BID WILLIE Administration Amoxicillin 500 mg 05/10/24 21:00 05/12/24 08:55 Amoxicillin 250 Mg Capsule PO 05/17/24 20:59 500 mg BID WILLIE Administration Azithromycin 250 mg 05/11/24 09:00 05/12/24 08:55 Azithromycin 250 Mg Tablet PO 05/18/24 08:59 250 mg QDAY WILLIE Administration Balsam [place] Oil 0 gm 05/11/24 21:00 05/12/24 08:55 Balsam [place] Oil (Venelex) 60 Gm Tube TOP 06/10/24 20:59 1 applicatio BID WILLIE Administration Bumetanide 1 mg 05/10/24 21:00 05/12/24 08:53 Bumetanide Inj 0.25 Mg/Ml Vial 4 Ml IVP 06/09/24 20:59 1 mg BID WILLIE Administration Carvedilol 3.125 mg 05/10/24 17:30 05/12/24 08:55 Carvedilol 3.125 Mg Tablet PO 06/09/24 17:29 3.125 mg BIDWM WILLIE Administration Enoxaparin Sodium 30 mg 05/12/24 09:00 05/12/24 09:42 Enoxaparin Sod Inj 30 Mg/0.3 Ml Syringe SC 05/26/24 08:59 30 mg QDAY WILLIE Administration Meclizine HCl 25 mg 05/12/24 14:52 Meclizine Hcl 25 Mg Tablet PO 06/11/24 14:51 TID PRN Vertigo or Dizziness Melatonin 3 mg 05/11/24 21:00 05/11/24 20:48 Melatonin 3 Mg Tablet PO 06/10/24 20:59 3 mg HS WILLIE Administration Multi-Ingredient Ointment 0 oz 05/11/24 21:00 05/12/24 12:27 Min Oil/Pet,White (Eucerin) Cr 16 Oz Btl TOP 06/10/24 20:59 1 appln BID WILLIE Administration Oseltamivir Phosphate 30 mg 05/10/24 18:00 05/12/24 09:01 Oseltamivir 30 Mg Capsule PO 05/17/24 17:59 30 mg QDAY WILLIE Administration Sacubitril/Valsartan 1 tab 05/11/24 09:00 05/12/24 08:55 Sacubitril 24 Mg/Valsartan 26 Mg Tablet PO 06/10/24 08:59 1 tab BID WILLIE Administration Sennosides 1 tab 05/10/24 10:50 Senna Tablet PO 06/09/24 10:49 BID PRN CONSTIPATION Protocol Spironolactone 25 mg 05/12/24 10:15 05/12/24 11:43 Spironolactone 25 Mg Tablet PO 06/11/24 10:14 25 mg QDAY WILLIE Administration Plan In summary: 88-year-old female with PMHx of CHF, EF 30-35% (12/2023), A-fib s/p pacemaker/defibrillator, COPD on 3 L home oxygen, HTN, admitted for AHRF likely 2/2 CHF vs. COPD exacerbation, versus pneumonia. She was using home PRN BUMEX for lower extremity edema and shortness of breath, had some improvement in edema, but persistent shortness of breath. On admission BNP elevated 3280, troponin negative, chest x-ray showed congestion. Superimposed with pneumonia. She was 2/4 SIRS positive with fever and tachycardia which have resolved. Positive influenza A, negative COVID and cocci. Appreciate recommendation from cardiology. Acute on Chronic hypoxic respiratory failure 2/2: CHF exacerbation VS COPD exacerbation VS Sepsis 2/2 influenza A pneumonia, Sepsis resolved Hx of CHF, EF 30?35 (12/2023) Etiology evaluation showed EF 30-35%, she continued on BUMEX, ENTRESTO and CARVEDILOL. Edema nearly resolved, lung exams improving crackles, continued on 4 L NC, satting okay. TSH 1.09 from 12/2023. Normal lipid panel from 09/2023. Anticipate improvement with management as below. ? Continue home ENTRESTO BID ? Continue BUMEX 1 mg BID ? Continue AZITHROMYCIN 250 mg (12 to [present]) ? Continue AMOXICILLIN 500 mg BID (1/2 to [present]) ? Continue TAMIFLU (05/10 to [present]) ? Continue DuoNebs Q6H scheduled, Q2H PRN ? Strict ANTONI's ? Fluid restriction 1500 cc daily ? UCx pending, negative Bcx and nasal MRSA A-fib with RVR, rate controlled Paroxysmal A-fib HTN History of paroxysmal A-fib. Admission EKG showed fib RVR with HR 114. Currently rate controlled. Currently asymptomatic without palpitation or chest pain. Anticipate HTN improvement with diuresis. [id number] 6 indicated 13.6% risk of stroke/TIA/systemic embolism. HAS-BLED 6 indicating high risk for bleed. On previous admission ELIQUIS was held in settings of GI bleed. Cardiology recommended ELIQUIS, srinivasan refused due to previous hx of GI bleed. Patient okay with LOVENOX DVT prophylaxis. ? Continue home AMIODARONE 200 mg BID ? Continue home CARVEDILOL as above ? Started on spironolactone 25 Mg daily ? Telemetry AMBROCIO Likely secondary to renal congestion in the setting of volume overload CR 1.4 then 1.4 on repeat (baseline 1.2), GFR 36 (baseline 40-55). Management as below. ? Diuresis as above ? Renally dose meds, avoid overdiuresis and NEPHROTOXINS Asymptomatic pyuria UA showed WBCs, leukocyte esterase, rare bacteria. Patient otherwise asymptomatic. Previously grew Enterococcus faecalis and MDR staph epididymis. Will continue with ANTIBIOTICS as above, adjust as needed based on culture. ? Pending urine culture Health maintenance Diet: Cardiac diet GI prophylaxis: Not indicated DVT prophylaxis: LOVENOX Antibiotics: AZITHROMYCIN, AMOX CODE STATUS: DNR Disposition: Pending symptoms improvement The patient's management plan was discussed with my attending physician MD Duy Cm MD, PGY2 Attending Provider Attestation/Addendum I have discussed and was present for the essential components of the history, physical examination, diagnosis, and treatment plan with the resident. I agree with the patient's care as documented by the resident and amended herein by me. Seymour Askew DO. Patient seen and evaluated this AM. In Short, patient is a 88-year-old female with significant past medical history of CHF, EF 30 to 35%, A-fib status post pacemaker, COPD on 3 L home O2, hypertension, admitted for acute hypoxic respiratory failure secondary to influenza pneumonia. No acute events overnight, patient and her daughter at bedside states she is improved today. Presently on 2 L with SpO2 at 96% however the patient states she still feels very weak and not ready to go home as of yet. Cocci serology is negative, CBC largely unremarkable, BMP significant for a BUN of 53 and a stable creatinine 1.4. Physical therapy ordered. Will continue Tamiflu today as well as antibiotics for any possible superimposed bacterial pneumonia. Home medications has been reconciled and added. Likely DC tomorrow 1 if patient continues to improve. I would like to see the patient get up to chair today and also use an incentive spirometer. Medications: Amiodarone 200 mg p.o. twice daily Amoxicillin 500 mg p.o. twice daily Eliquis 2.5 mg p.o. twice daily Azithromycin 250 mg p.o. daily Bumex 1 mg IV twice daily Coreg 3.125 mg p.o. twice daily Tamiflu 30 mg daily Entresto 1 tab p.o. twice daily Spironolactone 25 mg daily Although this document has been carefully reviewed, there may still be some phonetic and other typographical errors. These errors are purely grammatical due to imperfections in the software program and should not be construed in any way to compromise the substance of the patient's medical care during this visit.
[2024-05-12] MEDS: MELATONIN 3 MG TABLET PO (20:36)
[2024-05-12] MEDS: ACETAMINOPHEN 325 MG TABLET 650 MG PO (22:46)
[2024-05-13] VITALS (15 sets, daily range): BP systolic 100–145; BP diastolic 56–86; PULSE 60–116; RESP 17–25; TEMP 36.1–36.3; O2SAT 91–99; BMI 22.7; BMI 11.0
[2024-05-13 06:27] LABS: Basophils % (Auto) 0 % (0-2.5); Eosinophils % (Auto) 0 % (0-10); Hematocrit 27.4 % (36.0-46.0); Immature Granulocytes % (Auto) 1 % (0-0); Immature Granulocytes Auto 0.02 Thou/mm3 (0.00-0.00); Lymphocytes # (Auto) 0.9 Thou/mm3 (1.0-4.8); Lymphocytes % (Auto) 40 % (10-50); Mean Corpuscular HGB Conc 32.1 g/dl (31.0-37.0); Mean Corpuscular Hemoglobin 34.4 pg (25.0-35.0); Mean Corpuscular Volume 107 fL (80-100); Monocytes # (Auto) 0.4 Thou/mm3 (0.0-0.8); Monocytes % (Auto) 17 % (0-12); Neutrophils % (Auto) 42 % (37-80); Nucleated Red Blood Cell # 0.02 Thou/mm3 (0.00-0.00); Nucleated Red Blood Cell % 1 /100 WBC (0); Platelet Count 102 Thou/mm3 (140-440); RDW Standard Deviation 66.6 fL (36.4-46.3); Red Blood Count 2.56 Miln/mm3 (4.00-5.20)
[2024-05-13 06:33] LABS: Hemoglobin 8.8 g/dL (12.0-16.0)
[2024-05-13 06:35] LABS: White Blood Count 2.3 Thou/mm3 (3.6-11.0)
[2024-05-13 07:01] LABS: Alanine Aminotransferase 17 U/L (10-49); Albumin, Serum 3.6 gm/dL (3.4-4.8); Albumin/Globulin Ratio 1.4 (1.2-2.2); Alkaline Phosphatase 35 U/L (46-116); Anion Gap 9 (7-16); Aspartate Amino Transferase 35 U/L (0-34); BUN/Creatinine Ratio 43 Ratio (12-20); Bilirubin,Total 0.4 mg/dL (0.3-1.2); Blood Urea Nitrogen 51 mg/dL (9-23); Calcium 8.8 mg/dL (8.3-10.6); Calcium (Corrected) 9.1 mg/dL (8.5-10.1); Carbon Dioxide 33.8 mMol/L (20.0-31.0); Chloride 101 mMol/L (98-107); Creatinine (Component) 1.2 mg/dL (0.6-1.3); Estimated Creatinine Clearance 28.5 mL/min (>60); Globulin 2.6 gm/dL (2.3-3.5); Glucose 96 mg/dL (74-106); Magnesium 2.1 mg/dL (1.6-2.6); Osmolality,Calculated 300 (275-295); Potassium 3.7 mMol/L (3.4-5.1); Sodium 144 mMol/L (136-145); Total Protein 6.2 gm/dL (5.7-8.2); eGFR 44 See Note
--- NOTE | 2024-05-13 07:18 | PC.CC ---
Late Entry 05/12/24: Rounding note: Pending PT eval/recommendations, possible D/c home.
[2024-05-13] MEDS: ENOXAPARIN SOD INJ 30 MG/0.3 ML SYRINGE SC (12:52)
[2024-05-13] MEDS: SACUBITRIL 24 MG/VALSARTAN 26 MG TABLET 1 TAB PO ×2 (12:53→21:37)
[2024-05-13] MEDS: BUMETANIDE INJ 0.25 MG/ML VIAL 4 ML 1 MG IVP ×2 (12:53→21:35)
[2024-05-13] MEDS: SPIRONOLACTONE 25 MG TABLET PO (12:53)
[2024-05-13] MEDS: OSELTAMIVIR 30 MG CAPSULE PO (12:53)
[2024-05-13] MEDS: AZITHROMYCIN 250 MG TABLET PO (12:54)
[2024-05-13] MEDS: AMIODARONE HCL 200 MG TABLET PO ×2 (12:54→21:36)
[2024-05-13] MEDS: AMOXICILLIN 250 MG CAPSULE 500 MG PO ×2 (12:54→21:33)
[2024-05-13] MEDS: BALSAM PERU/CASTOR OIL (Venelex) 60 GM TUBE TOP ×2 (12:56→21:34)
--- NOTE | 2024-05-13 13:52 | ESPR_ITS ---
Documentation for date of: 05/13/24 Subjective Subjective Interval history: No acute overnight events. Slightly agitated this morning, reports feeling sleepy, unable to sleep over the last few days. Denies fever, chills, headaches, chest pain, sob, cough, GI or urinary symptoms. Exam Vital Signs Temp Pulse Resp BP Pulse Ox O2 Del Method O2 Flow Rate 97.3 F 80 25 H 138/67 H 91 L Nasal Cannula 5 05/13/24 12:00 05/13/24 12:54 05/13/24 12:00 05/13/24 12:54 05/13/24 12:00 05/13/24 12:00 05/13/24 12:00 Narrative Exam GENERAL: Appearing elderly male, cachectic, on OxyMask, no apparent distress HEENT: NCAT.?SUKHDEV. Oral mucosa is moist. Patent Nares NECK: Supple, nontender, no thyromegaly, no meningismus, no JVD, no step offs CARDIOVASCULAR: RRR, no m/g/r LUNGS: Bilateral coarse breath sounds and rhonchi improving. Symmetrical chest rise. No intercostal subcostal retraction. ABDOMEN: Soft, flat, nontender. No guarding/rebound tenderness/masses. +BS EXTREMITIES: Bilateral lower extremity YULIA resolved, chronic venous stasis and senile purpura. Pulses intact bilaterally. SKIN: Warm and dry, no jaundice/rashes. MSK: No lumbar or midline, no CVA, no paraspinal muscle spasm or tenderness. NEURO: HUA x4, CN II-XII grossly intact.?No focal neurologic deficits. PSYCHIATRIC: Normal mood and affect, cooperative, no SI or HI or hallucinations. Objective Labs 05/13/24 04:52 05/13/24 04:52 Labs: Laboratory Results - last 24 hr 05/10/24 05/13/24 18:44 04:52 WBC 2.3 L D RBC 2.56 L Hgb 8.8 L Hct 27.4 L MCV 107 H MCH 34.4 MCHC 32.1 RDW Std Deviation 66.6 H Plt Count 102 L Neut % (Auto) 42 Lymph % (Auto) 40 [place] % (Auto) 17 H Eos % (Auto) 0 Baso % (Auto) 0 Neut # (Auto) 1.0 L Lymph # (Auto) 0.9 L [place] # (Auto) 0.4 Eos # (Auto) 0.0 Baso # (Auto) 0.0 Immature Gran # (Auto) 0.02 H Absolute Nucleated RBC 0.02 H Immature Gran % 1 H Nucleated RBC % 1 H Sodium 144 Potassium 3.7 Chloride 101 Carbon Dioxide 33.8 H Anion Gap 9 BUN 51 H Creatinine 1.2 Estim Creat Clear Calc 28.5 L eGFR 44 L BUN/Creatinine Ratio 43 H Glucose 96 Calculated Osmolality 300 H Calcium 8.8 Corrected Calcium 9.1 Phosphorus 4.0 Magnesium 2.1 Total Bilirubin 0.4 AST 35 H ALT 17 Alkaline Phosphatase 35 L Total Protein 6.2 Albumin 3.6 Globulin 2.6 Albumin/Globulin Ratio 1.4 Coccidioides IgG Ab Negative Quality Measures Quality Measures sepsis Current suspected stage: ruled out Possible source: pulmonary Blood cultures ordered: completed in ED Antibiotic ordered: Yes and none Advance care planning discussed with:: patient Assessment & Plan Assessment Current Active Medications: Generic Name Dose Route Start Last Admin Trade Name Freq PRN Reason Stop Dose Admin Acetaminophen 650 mg 05/10/24 10:45 05/12/24 22:46 Acetaminophen 325 Mg Tablet PO 06/09/24 10:44 650 mg Q6H PRN Administration Fever >100.4 or mild pain 1-3 Albuterol/Ipratropium 3 ml 05/10/24 10:45 Albuterol/Ipratropium (Duoneb) Rt Ruma 3 Ml Nebu INH 06/09/24 10:44 Q2HR PRN SHORTNESS OF BREATH OR WHEEZE Albuterol/Ipratropium 3 ml 05/10/24 13:00 05/13/24 07:42 Albuterol/Ipratropium (Duoneb) Rt Ruma 3 Ml Nebu INH 06/09/24 12:59 Not Given Q6HRRT WILLIE Amiodarone HCl 200 mg 05/10/24 21:00 05/13/24 12:54 Amiodarone Hcl 200 Mg Tablet PO 06/09/24 20:59 200 mg BID WILLIE Administration Amoxicillin 500 mg 05/10/24 21:00 05/13/24 12:54 Amoxicillin 250 Mg Capsule PO 05/17/24 20:59 500 mg BID WILLIE Administration Azithromycin 250 mg 05/11/24 09:00 05/13/24 12:54 Azithromycin 250 Mg Tablet PO 05/18/24 08:59 250 mg QDAY WILLIE Administration Balsam [place] Oil 0 gm 05/11/24 21:00 05/13/24 12:56 Balsam [place] Oil (Venelex) 60 Gm Tube TOP 06/10/24 20:59 1 applicatio BID WILLIE Administration Bumetanide 1 mg 05/10/24 21:00 05/13/24 12:53 Bumetanide Inj 0.25 Mg/Ml Vial 4 Ml IVP 06/09/24 20:59 1 mg BID WILLIE Administration Carvedilol 3.125 mg 05/10/24 17:30 05/13/24 12:57 Carvedilol 3.125 Mg Tablet PO 06/09/24 17:29 Not Given BIDWM WILLIE Diphenhydramine HCl 6.25 mg 05/13/24 21:00 Diphenhydramine Elix 25 Mg/10 Ml Udc PO 06/12/24 20:59 HS WILLIE Enoxaparin Sodium 30 mg 05/12/24 09:00 05/13/24 12:52 Enoxaparin Sod Inj 30 Mg/0.3 Ml Syringe SC 05/26/24 08:59 30 mg QDAY WILLIE Administration Meclizine HCl 25 mg 05/12/24 14:52 Meclizine Hcl 25 Mg Tablet PO 06/11/24 14:51 TID PRN Vertigo or Dizziness Melatonin 3 mg 05/11/24 21:00 05/12/24 20:36 Melatonin 3 Mg Tablet PO 06/10/24 20:59 3 mg HS WILLIE Administration Multi-Ingredient Ointment 0 oz 05/11/24 21:00 05/13/24 12:55 Min Oil/Pet,White (Eucerin) Cr 16 Oz Btl TOP 06/10/24 20:59 Not Given BID WILLIE Oseltamivir Phosphate 30 mg 05/10/24 18:00 05/13/24 12:53 Oseltamivir 30 Mg Capsule PO 05/17/24 17:59 30 mg QDAY WILLIE Administration Sacubitril/Valsartan 1 tab 05/11/24 09:00 05/13/24 12:53 Sacubitril 24 Mg/Valsartan 26 Mg Tablet PO 06/10/24 08:59 1 tab BID WILLIE Administration Sennosides 1 tab 05/10/24 10:50 Senna Tablet PO 06/09/24 10:49 BID PRN CONSTIPATION Protocol Spironolactone 25 mg 05/12/24 10:15 05/13/24 12:53 Spironolactone 25 Mg Tablet PO 06/11/24 10:14 25 mg QDAY WILLIE Administration Plan In summary: 88-year-old female with PMHx of CHF, EF 30-35% (12/2023), A-fib s/p pacemaker/defibrillator, COPD on 3 L home oxygen, HTN, admitted for AHRF likely 2/2 CHF vs. COPD exacerbation, versus pneumonia. Initially the plan to go discharge with home health, however patient refused, currently pending SNF. She was using home PRN BUMEX for lower extremity edema and shortness of breath, had some improvement in edema, but persistent shortness of breath. On admission BNP elevated 3280, troponin negative, chest x-ray showed congestion. Superimposed with pneumonia. She was 2/4 SIRS positive with fever and tachycardia which have resolved. Positive influenza A, negative COVID and cocci. Appreciate recommendation from cardiology. Acute on Chronic hypoxic respiratory failure 2/2: CHF exacerbation VS COPD exacerbation VS Sepsis 2/2 influenza A pneumonia, Sepsis resolved Hx of CHF, EF 30?35 (12/2023) Etiology evaluation showed EF 30-35%, she continued on BUMEX, ENTRESTO and CARVEDILOL. Edema nearly resolved, lung exams improving crackles, continued on 4 L NC, satting okay. TSH 1.09 from 12/2023. Normal lipid panel from 09/2023. Had 3 L of urine output with diuresis. SOB improving, titrate oxygen down, lower extremity edema resolved. ? Continue home ENTRESTO BID ? Continue BUMEX 1 mg BID ? Continue AZITHROMYCIN 250 mg (1/2 to [present]) ? Continue AMOXICILLIN 500 mg BID (1/2 to [present]) ? Continue TAMIFLU (/ to [present]) ? Continue DuoNebs Q6H scheduled, Q2H PRN ? Strict ANTONI's ? Fluid restriction 1500 cc daily ? UCx pending, negative Bcx and nasal MRSA A-fib with RVR, rate controlled Paroxysmal A-fib HTN History of paroxysmal A-fib. Admission EKG showed fib RVR with HR 114. Currently rate controlled. Currently asymptomatic without palpitation or chest pain. Anticipate HTN improvement with diuresis. [id number] 6 indicated 13.6% risk of stroke/TIA/systemic embolism. HAS-BLED 6 indicating high risk for bleed. On previous admission ELIQUIS was held in settings of GI bleed. Cardiology recommended ELIQUIS, srinivasan refused due to previous hx of GI bleed. Patient okay with LOVENOX DVT prophylaxis. ? Continue home AMIODARONE 200 mg BID ? Continue home CARVEDILOL as above ? Started on spironolactone 25 Mg daily ? Telemetry AMBROCIO Likely secondary to renal congestion in the setting of volume overload CR 1.4 then 1.4 on repeat (baseline 1.2), GFR 36 (baseline 40-55). Management as below. ? Diuresis as above ? Renally dose meds, avoid overdiuresis and NEPHROTOXINS Asymptomatic pyuria UA showed WBCs, leukocyte esterase, rare bacteria. Patient otherwise asymptomatic. Previously grew Enterococcus faecalis and MDR staph epididymis. Will continue with ANTIBIOTICS as above, adjust as needed based on culture. ? Pending urine culture Insomnia Unable to sleep overnight, appears slightly agitated today due to lack of sleep. ? Continue MELATONIN HS ? Continue BENADRYL HS Health maintenance Diet: Cardiac diet GI prophylaxis: Not indicated DVT prophylaxis: LOVENOX Antibiotics: AZITHROMYCIN, AMOX CODE STATUS: DNR Disposition: Pending symptoms improvement Patient case was discussed with attending, Dr. Alvarenga and senior resident Dr. Harvey. Jose Bullock DO PGYI Attending Provider Attestation/Addendum I have examined the patient, reviewed labs and imaging findings, discussed the case with the resident(s), and reviewed entered orders. I agree with the plan of care as outlined in this note, with these additional summaries/recommendations: Patient seen at bedside. No acute overnight events. Today at bedside patient reports she is tired and refusing all morning medications. Patient was counseled extensively at bedside although she reports she is tired and will consider taking her medications this evening. She is in agreement with low-dose Benadryl to help sleep. Continue supplemental oxygen for acute on chronic hypoxic respiratory failure. Patient is currently requiring 5 L nasal cannula with appropriate O2 saturation. Continue antibiotics for likely superimposed bacterial pneumonia 2/2 to GNRs. Patient was also found to have acute CHF exacerbation. Previous echo showed dilated LV, severe systolic dysfunction, global hypokinesis, and EF 30 to 35%. Continue goal-directed medical therapy with IV Bumex for preload reduction. Continue Entresto for afterload reduction. Continue Coreg for neurohormonal blockade. Continue Tamiflu for influenza. Leukopenia on hematology panel likely related to bone marrow suppression from flu. Continue amiodarone for chronic atrial fibrillation. Patient is no longer taking anticoagulation as she refuses. She understands she is at increased risk for stroke. Patient also has history of COPD although no wheezing on exam today. Continue duonebs. Acute kidney injury improving and continue diuresis. Avoid nephrotoxic agents and renally dose medications. Unclear if patient is having urinary symptoms although currently covering possible UTI with antibiotics and urine culture pending. Pending physical therapy evaluation and patient declines SNF if indicated. Repeat hematology and chemistry panel in AM. Dr. Alvarenga
--- NOTE | 2024-05-13 14:16 | ESPR_ITS ---
RE: KEYA MONTOYA : 1935 DATE OF SERVICE: 05/13/2024 S: Keya Montoya is an 88-year-old lady with history of congestive heart failure, systolic heart failure admitted to the hospital with multiple problems, feeling a little better. She is only on 2 liter nasal cannula and not saturating well. She is tired and lethargic today, not eating that well. O: Vital Signs: Blood pressure 100/60, pulse rate is 80. Neck: Supple. No JVD. Lungs: Decreased breath sounds at bases. No rales. Heart: S1, S2 distant. Abdomen: Thin and soft. Extremities: Chronic edema. Genital/Rectal: Not performed. Laboratory Data: Showed hemoglobin 8.8, stable. Chemistry panel showed creatinine level of 1.2, BUN 51. A: 1. Acute on chronic systolic heart failure. 2. Nonischemic cardiomyopathy. 3. Status post TRICOT KNITTER defibrillator implantation. 4. Failure to thrive. P: Continue medical management and the patient is quite stable. If she is okay, she can be discharged tomorrow or a day after. DT: 11:14:21 TT: 14:14:00 Ref: [id number] - TID: [id number]
--- NOTE | 2024-05-13 15:01 | PC.CC ---
Rounding note: Pt is pending PT eval. Pt has declined SNF.
[2024-05-13] MEDS: MECLIZINE HCL 25 MG TABLET PO (16:33)
[2024-05-13] MEDS: carVEDILOL 3.125 MG TABLET PO (17:04)
[2024-05-13] MEDS: MELATONIN 3 MG TABLET PO (21:33)
[2024-05-13] MEDS: DiphenhydrAMINE ELIX 25 MG/10 ML UDC 6.25 MG PO (21:33)
[2024-05-13] MEDS: MIN OIL/PET,WHITE (Eucerin) CR 16 OZ BTL TOP (21:37)
--- NOTE | 2024-05-13 22:30 | PC.NURSE ---
Called hospitalist, spoke to resident Dr. Yusuf. Made aware of HR, fluctuating between 100-130s, rhythm is A-fib with occasionally pvc and couplets. Pt is alert/oriented x self and place. No s/s of acute distress noted. No new orders received at this time. Plan of care ongoing.
--- NOTE | 2024-05-13 22:30 | PC.NURSE ---
Called hospitalist, spoke to resident Dr. Yusuf. Made aware of HR, fluctuating between 100-130s, rhythm is A-fib with occasional pvc and couplets. Pt is alert/oriented x self and place. No s/s of acute distress noted. No new orders received at this time. Plan of care ongoing.
[2024-05-14] VITALS (19 sets, daily range): BP systolic 104–138; BP diastolic 65–81; PULSE 62–118; RESP 16–34; TEMP 36–36.3; O2SAT 91–100
[2024-05-14] MEDS: ALBUTEROL/IPRATROPIUM (Duoneb) RT SOL 3 ML NEBU INH ×4 (03:22→19:45)
--- NOTE | 2024-05-14 05:25 | PC.NURSE ---
Pt feels short of breath, states she can't breath. Pt on 4L NC SpO2 73%, placed oxy mask 15L SpO2 80s, called Yash, RT to bedside. Repositioned pt and change pulse ox probe, SpO2 still 83%. Rapid response called at 0529.
--- NOTE | 2024-05-14 05:35 | EKG_ITS ---
[facility] Test Date: 2024-05-14 Pat Name: ANNEL MONTOYA [facility] Field Clerk: TOMMY : 1935 Requested By: Josep Brewer Order Number: [id number] Reading MD: Josep Brewer Measurements Intervals [place] Rate: 76 P: SD: QRS: -55 QRSD: 141 T: -77 QT: 451 QTc: 509 Interpretive Statements ELECTRONIC VENTRICULAR PACEMAKER ABNORMAL RHYTHM ECG Compared to ECG 12/13/2023 18:43:59 Atrial fibrillation no longer present Intraventricular conduction delay no longer present /store/S0/[id number]/ecg/[id number].pdf
--- NOTE | 2024-05-14 05:42 | XR_ITS ---
Examination: AP chest single view Technique one AP portable upright chest single view Exam date and time: May 14, 2024 at 0544 hrs. Comparison May 10, 2024 Indications: Hypoxia Findings: Mild to moderate CHF Mild to moderate enlargement cardiac contour Prominent vascular congestion with perihilar edema Consider superimposed pneumonia at the lung bases Stable position cardiac leads Prominent osteopenia Impression: Mild to moderate CHF Consider superimposed pneumonia at the lung bases
--- NOTE | 2024-05-14 05:50 | EVENTNT_ITS ---
Documentation for date of: 05/14/24 Event Note Event Note: Rapid Response Room: 263 Time: 05:30 Reason for Call: O2 desaturation to 70s on 4L NC, minimal improvement when increased to 15L Patient presentation: Patient sitting in bed, alert, calm, oriented x3 and states that she started becoming short of breath while in bed, no known trigger. BP 138/77, HR in the 70-80s. Events: Patient was placed on 15L O2 without improvement and O2 stayed in 79-82 range. Last got breathing treatment around 03:22, which was her first breathing treatment. Initiated DuoNeb breathing treatment, however pt did not have improvement of saturation. Patient was then placed on Hi-Flow 40L 100% FiO2, still without improvement. Patient is DNR/DNI, which patient confirmed. Patient next of kin, daughter Rosalina Solano was contacted regarding patient status, she confirmed the patient's wishes for DNR. She was updated regarding patient's decompensation, confirmed no DNI, will try NIPPV. Daughter will be coming from [place] this morning. BiPAP was placed on patient with improvement of saturation to 88-92%. Assessment: Acute hypoxic respiratory failure secondary to influenza in the setting of history of COPD. CXR assessed bedside did not show any significant worsening infiltrates. Differentials: worsening pneumonia, ARDS, pulmonary embolism New orders: CXR, EKG, ABG, D-Dimer, sputum culture, given therapeutic Lovenox dose 60 mg x1, bumex 2 mg x1, gave Zosyn x1 dose and vancomycin x1 Patient was discussed with the attending, Dr. Fernandes, and team residents Michael Yusuf, PGY-1 and Josep Brewer, PGY-1. Georgia Rhodes, PGY-2
[2024-05-14 05:59] LABS: Base Excess 9 (-3-3); HCO3 34 mEq/L (20-26); Inspired Oxygen, FIO2 100 %; O2 Saturation 81 % (91-98); PCO2 47 mmHg (32.0-48.0); pH, Arterial 7.47 (7.35-7.45)
[2024-05-14 06:03] LABS: Allen Test Performed/OK; PO2 43 mmHg (83-108); Puncture Site Right Radial
[2024-05-14] MEDS: BUMETANIDE INJ 0.25 MG/ML VIAL 4 ML 2 MG IVP (06:05)
[2024-05-14 06:10] LABS: Basophils % (Auto) 0 % (0-2.5); Eosinophils % (Auto) 0 % (0-10); Hematocrit 30.5 % (36.0-46.0); Hemoglobin 10.1 g/dL (12.0-16.0); Immature Granulocytes % (Auto) 1 % (0-0); Immature Granulocytes Auto 0.03 Thou/mm3 (0.00-0.00); Lymphocytes % (Auto) 48 % (10-50); Mean Corpuscular HGB Conc 33.1 g/dl (31.0-37.0); Mean Corpuscular Hemoglobin 34.1 pg (25.0-35.0); Mean Corpuscular Volume 103 fL (80-100); Monocytes # (Auto) 0.4 Thou/mm3 (0.0-0.8); Monocytes % (Auto) 10 % (0-12); Neutrophils # (Auto) 1.7 Thou/mm3 (1.8-7.7); Neutrophils % (Auto) 41 % (37-80); Nucleated Red Blood Cell # 0.03 Thou/mm3 (0.00-0.00); Nucleated Red Blood Cell % 1 /100 WBC (0); Platelet Count 137 Thou/mm3 (140-440); RDW Standard Deviation 63.8 fL (36.4-46.3); Red Blood Count 2.96 Miln/mm3 (4.00-5.20); White Blood Count 4.2 Thou/mm3 (3.6-11.0)
--- NOTE | 2024-05-14 06:11 | PC.RT ---
called to bedside by Rn in regards to pt desating to 77%. pt placed on 15L oxymask with little improvement. rapid response called, respiratory treatment given and placed on Hiflow nasal canula at 40L 100%. no improvement from hiflow. pt placed on Bipap spo2 increased to 91%
[2024-05-14 06:26] LABS: Alanine Aminotransferase 18 U/L (10-49); Albumin, Serum 3.7 gm/dL (3.4-4.8); Albumin/Globulin Ratio 1.2 (1.2-2.2); Alkaline Phosphatase 37 U/L (46-116); Anion Gap 9 (7-16); Aspartate Amino Transferase 30 U/L (0-34); BUN/Creatinine Ratio 42 Ratio (12-20); Bilirubin,Total 0.4 mg/dL (0.3-1.2); Blood Urea Nitrogen 46 mg/dL (9-23); Calcium 9.2 mg/dL (8.3-10.6); Calcium (Corrected) 9.4 mg/dL (8.5-10.1); Carbon Dioxide 31.2 mMol/L (20.0-31.0); Chloride 102 mMol/L (98-107); Creatinine (Component) 1.1 mg/dL (0.6-1.3); Estimated Creatinine Clearance 31.1 mL/min (>60); Glucose 106 mg/dL (74-106); Magnesium 2.1 mg/dL (1.6-2.6); Osmolality,Calculated 295 (275-295); Phosphorous 2.4 mg/dL (2.4-5.1); Potassium 3.8 mMol/L (3.4-5.1); Sodium 142 mMol/L (136-145); Total Protein 6.7 gm/dL (5.7-8.2); eGFR 49 See Note
[2024-05-14 06:35] LABS: D-Dimer 492 ng/mL (<600)
[2024-05-14] MEDS: PIPER/TAZO 3.375 GM 50 ML IV (07:17)
[2024-05-14] MEDS: ENOXAPARIN SOD INJ 60 MG/0.6 ML SYRINGE SC (07:17)
--- NOTE | 2024-05-14 09:29 | ESPR_ITS ---
<Statement entered by María Harvey MD - 05/14/24 16:00> I discussed with and supervised my co-resident involved in the care of this patient. I agree with the assessment and plan as documented above. María Harvey,PGY-3 Disclaimer: Despite multiple revisions, due to the dictation software being used, the document below may not be free of grammatical errors including phonetic/typographic errors. However, this does not deter from our commitment to providing health care in the patient's best interest in mind. Documentation for date of: 05/14/24 Subjective Subjective Interval history: Overnight patient found desatting in the 70s on nasal cannula. ABG showed low oxygen saturation, normal CO2, she was continued on BiPAP since 5 AM this morning. Currently she is uncomfortable 2/2 BiPAP machine. Denies chest pain, headache, GI or urinary symptoms. Will reevaluate patient once she is off of BiPAP. Exam Vital Signs Temp Pulse Resp BP Pulse Ox O2 Del Method O2 Flow Rate 97.0 F 79 18 138/77 H 100 Nasal Cannula 15 05/14/24 04:00 05/14/24 06:08 05/14/24 06:08 05/14/24 06:05 05/14/24 06:08 05/14/24 04:00 05/14/24 06:08 FiO2 100 05/14/24 06:08 Narrative Exam GENERAL: Appearing elderly male, cachectic, on BiPAP HEENT: NCAT.?SUKHDEV. Oral mucosa is moist. Patent Nares NECK: Supple, nontender, no thyromegaly, no meningismus, no JVD, no step offs CARDIOVASCULAR: RRR, no m/g/r LUNGS: Bilateral coarse breath sounds and rhonchi improving. Symmetrical chest rise. No intercostal subcostal retraction. ABDOMEN: Soft, flat, nontender. No guarding/rebound tenderness/masses. +BS EXTREMITIES: Bilateral lower extremity YULIA resolved, chronic venous stasis and senile purpura. Pulses intact bilaterally. SKIN: Warm and dry, no jaundice/rashes. MSK: No lumbar or midline, no CVA, no paraspinal muscle spasm or tenderness. NEURO: HUA x4, CN II-XII grossly intact.?No focal neurologic deficits. PSYCHIATRIC: Normal mood and affect, cooperative, no SI or HI or hallucinations. Objective Labs 05/15/24 06:19 05/14/24 05:50 Labs: Laboratory Results - last 24 hr 05/14/24 05:50 WBC 4.2 D RBC 2.96 L Hgb 10.1 L Hct 30.5 L MCV 103 H MCH 34.1 MCHC 33.1 RDW Std Deviation 63.8 H Plt Count 137 L D Neut % (Auto) 41 Lymph % (Auto) 48 [place] % (Auto) 10 Eos % (Auto) 0 Baso % (Auto) 0 Neut # (Auto) 1.7 L Lymph # (Auto) 2.0 [place] # (Auto) 0.4 Eos # (Auto) 0.0 Baso # (Auto) 0.0 Immature Gran # (Auto) 0.03 H Absolute Nucleated RBC 0.03 H Immature Gran % 1 H Nucleated RBC % 1 H D-Dimer 492 Puncture Site Right Radial ABG pH 7.47 H ABG pCO2 47 ABG pO2 43 L* ABG HCO3 34 H ABG O2 Saturation 81 L ABG Base Excess 9 H FiO2 100 Sodium 142 Potassium 3.8 Chloride 102 Carbon Dioxide 31.2 H Anion Gap 9 BUN 46 H Creatinine 1.1 Estim Creat Clear Calc 31.1 L eGFR 49 L BUN/Creatinine Ratio 42 H Glucose 106 Calculated Osmolality 295 Calcium 9.2 Corrected Calcium 9.4 Phosphorus 2.4 Magnesium 2.1 Total Bilirubin 0.4 AST 30 ALT 18 Alkaline Phosphatase 37 L Troponin I 0.030 Total Protein 6.7 Albumin 3.7 Globulin 3.0 Albumin/Globulin Ratio 1.2 ABG Interpretation ABG results: 05/14/24 05:50 ABG pH 7.47 H ABG pCO2 47 ABG pO2 43 L* ABG HCO3 34 H ABG O2 Saturation 81 L ABG Base Excess 9 H Quality Measures Quality Measures sepsis Current suspected stage: ruled out Possible source: pulmonary Blood cultures ordered: completed in ED Antibiotic ordered: Yes and none Advance care planning discussed with:: patient Assessment & Plan Assessment Current Active Medications: Generic Name Dose Route Start Last Admin Trade Name Freq PRN Reason Stop Dose Admin Acetaminophen 650 mg 05/10/24 10:45 05/12/24 22:46 Acetaminophen 325 Mg Tablet PO 06/09/24 10:44 650 mg Q6H PRN Administration Fever >100.4 or mild pain 1-3 Albuterol/Ipratropium 3 ml 05/10/24 10:45 05/14/24 03:22 Albuterol/Ipratropium (Duoneb) Rt Ruma 3 Ml Nebu INH 06/09/24 10:44 3 ml Q2HR PRN Administration SHORTNESS OF BREATH OR WHEEZE Albuterol/Ipratropium 3 ml 05/10/24 13:00 05/14/24 06:07 Albuterol/Ipratropium (Duoneb) Rt Ruma 3 Ml Nebu INH 06/09/24 12:59 3 ml Q6HRRT WILLIE Administration Amiodarone HCl 200 mg 05/10/24 21:00 05/13/24 21:36 Amiodarone Hcl 200 Mg Tablet PO 06/09/24 20:59 200 mg BID WILLIE Administration Azithromycin 250 mg 05/11/24 09:00 05/13/24 12:54 Azithromycin 250 Mg Tablet PO 05/18/24 08:59 250 mg QDAY WILLIE Administration Balsam [place] Oil 0 gm 05/11/24 21:00 05/13/24 21:34 Balsam [place] Oil (Venelex) 60 Gm Tube TOP 06/10/24 20:59 1 applicatio BID WILLIE Administration Bumetanide 1 mg 05/10/24 21:00 05/13/24 21:35 Bumetanide Inj 0.25 Mg/Ml Vial 4 Ml IVP 06/09/24 20:59 1 mg BID WILLIE Administration Carvedilol 3.125 mg 05/10/24 17:30 05/13/24 17:04 Carvedilol 3.125 Mg Tablet PO 06/09/24 17:29 3.125 mg BIDWM WILLIE Administration Diphenhydramine HCl 6.25 mg 05/13/24 21:00 05/13/24 21:33 Diphenhydramine Elix 25 Mg/10 Ml Udc PO 06/12/24 20:59 6.25 mg HS WILLIE Administration Enoxaparin Sodium 30 mg 05/12/24 09:00 05/13/24 12:52 Enoxaparin Sod Inj 30 Mg/0.3 Ml Syringe SC 05/26/24 08:59 30 mg QDAY WILLIE Administration Piperacillin/Tazobactam/Dextrose 3.375 gm in 50 mls @ 12.5 mls/hr 05/14/24 14:00 Zosyn IV 05/21/24 13:59 Q8HR WILLIE Meclizine HCl 25 mg 05/12/24 14:52 05/13/24 16:33 Meclizine Hcl 25 Mg Tablet PO 06/11/24 14:51 25 mg TID PRN Administration Vertigo or Dizziness Melatonin 3 mg 05/11/24 21:00 05/13/24 21:33 Melatonin 3 Mg Tablet PO 06/10/24 20:59 3 mg HS WILLIE Administration Multi-Ingredient Ointment 0 oz 05/11/24 21:00 05/13/24 21:37 Min Oil/Pet,White (Eucerin) Cr 16 Oz Btl TOP 06/10/24 20:59 1 appln BID WILLIE Administration Oseltamivir Phosphate 30 mg 05/10/24 18:00 05/13/24 12:53 Oseltamivir 30 Mg Capsule PO 05/17/24 17:59 30 mg QDAY WILLIE Administration Sacubitril/Valsartan 1 tab 05/11/24 09:00 05/13/24 21:37 Sacubitril 24 Mg/Valsartan 26 Mg Tablet PO 06/10/24 08:59 1 tab BID WILLIE Administration Sennosides 1 tab 05/10/24 10:50 Senna Tablet PO 06/09/24 10:49 BID PRN CONSTIPATION Protocol Spironolactone 25 mg 05/12/24 10:15 05/13/24 12:53 Spironolactone 25 Mg Tablet PO 06/11/24 10:14 25 mg QDAY WILLIE Administration Plan In summary: 88-year-old female with PMHx of CHF, EF 30-35% (12/2023), A-fib s/p pacemaker/defibrillator, COPD on 3 L home oxygen, HTN, admitted for AHRF likely 2/2 CHF vs. COPD exacerbation, versus pneumonia. Initially the plan to go discharge with home health, however patient refused, currently pending SNF. Overnight had a rapid response for hypoxemia, desatting in 70s. ABG showed low oxygen but normal pCO2. CXR showed improved right-sided pneumonia, D-dimer was negative, EKG no acute ST changes. Given one-time ZOSYN and VANCOMYCIN. Ordered sputum culture. Plan to switch to high flow, and wean off oxygen. She was using home PRN BUMEX for lower extremity edema and shortness of breath, had some improvement in edema, but persistent shortness of breath. On admission BNP elevated 3280, troponin negative, chest x-ray showed congestion. Superimposed with pneumonia. She was 2/4 SIRS positive with fever and tachycardia which have resolved. Positive influenza A, negative COVID and cocci. Appreciate recommendation from cardiology. Acute on Chronic hypoxic respiratory failure 2/2: CHF exacerbation VS COPD exacerbation VS Sepsis 2/2 influenza A pneumonia, Sepsis resolved Hx of CHF, EF 30?35 (12/2023) Continued on diuresis with BUMEX, and GDMT. Overall -1.0 L. Edema and lung crackles, resolved. Continued on TAMIFLU, AMOXICILLIN and AZITHROMYCIN and breathing treatments. Afebrile, no leukocytosis. Previously was improving, on 4 L NC (baseline 3 L home oxygen). However overnight, desatting in 70s. CXR showed improving pneumonia, D-dimer negative, EKG no acute ST normalities. Night team gave one-time VANCOMYCIN and ZOSYN. Also started BiPAP and plan to switch to high flow and eventually wean off oxygen. ? Continue home ENTRESTO BID ? Continue home BUMEX 1 mg BID ? Continue home Spironolactone 25 Mg daily ? Continue AZITHROMYCIN 250 mg (05/10 to [present]) ? Discontinued AMOXICILLIN 500 mg BID (05/10 to 05/14) ? Started ZOSYN 3.375 mg (05/14 to [present]) ? Continue TAMIFLU (05/10 to [present]) ? Continue DuoNebs Q6H scheduled, Q2H PRN ? Started MUCOMYST Q6H ? Start GUAIFENESIN 200 mg QID ? Chest physiotherapy ? Strict ANTONI's ? Fluid restriction 1500 cc daily ? UCx pending, negative Bcx and nasal MRSA A-fib with RVR, rate controlled Paroxysmal A-fib HTN History of paroxysmal A-fib. Admission EKG showed fib RVR with HR 114. Currently rate controlled. Currently asymptomatic without palpitation or chest pain. Anticipate HTN improvement with diuresis. [id number] 6 indicated 13.6% risk of stroke/TIA/systemic embolism. HAS-BLED 6 indicating high risk for bleed. On previous admission ELIQUIS was held in settings of GI bleed. Cardiology recommended ELIQUIS, srinivasan refused due to previous hx of GI bleed. Patient okay with LOVENOX DVT prophylaxis. ? Continue home AMIODARONE 200 mg BID ? Continue home CARVEDILOL as above ? Telemetry E. Coli UTI Admission UA showed pyuria, patient stated she is asymptomatic. Previous culture grew Enterococcus faecalis and MDR Staph epidermidis. Culture this admission grew E. coli. AMBROCIO Likely secondary to renal congestion in the setting of volume overload CR 1.4 then 1.4 on repeat (baseline 1.2), GFR 36 (baseline 40-55). Management as below. ? Diuresis as above ? Renally dose meds, avoid overdiuresis and NEPHROTOXINS Asymptomatic pyuria UA showed WBCs, leukocyte esterase, rare bacteria. Patient otherwise asymptomatic. Previously grew Enterococcus faecalis and MDR staph epididymis. Will continue with ANTIBIOTICS as above, adjust as needed based on culture. ? Pending urine culture Insomnia Unable to sleep overnight, appears slightly agitated today due to lack of sleep. ? Continue MELATONIN HS ? Continue BENADRYL HS Health maintenance Diet: Cardiac diet GI prophylaxis: Not indicated DVT prophylaxis: LOVENOX Antibiotics: AZITHROMYCIN, ZOSYN CODE STATUS: DNR Disposition: Pending symptoms improvement Patient case was discussed with attending, Ck Santos MD and senior residents Dr. Harvey and Dr. Phelps. Jose Bullock DO PGYI Attending Provider Attestation/Addendum I reviewed labs, imaging, EKG, home medications and prior available records. Face to face evaluation was performed by me. I have personally examined the patient and discussed assessment and plan with the IM team. I reviewed the resident note and agree with the plan with exceptions as below. Acute hypoxic respiratory failure CHF exacerbation HFpEF EF 30 to 35% Right lower lobe pneumonia Hospital-acquired pneumonia Possible aspiration pneumonia E. coli UTI Atrial fibrillation with RVR AMBROCIO Thrombocytopenia Rapid response was called for worsening hypoxia. Chest x-ray showed moderate CHF. ABG showed pO2 of 43%. Possible aspiration Started IV Zosyn Started chest physiotherapy is on guaifenesin Sent sputum culture Aspiration precautions Continue IV diuresis Continue p.o. amiodarone Kidney function improved. Monitor kidney function. Avoid nephrotoxins. Renally dosed medications Monitor platelet level. Monitor for bleeding Continue Entresto and Coreg
[2024-05-14] MEDS: AZITHROMYCIN 250 MG TABLET PO (10:38)
[2024-05-14] MEDS: carVEDILOL 3.125 MG TABLET PO ×2 (10:38→17:16)
[2024-05-14] MEDS: BUMETANIDE INJ 0.25 MG/ML VIAL 4 ML 1 MG IVP ×2 (10:39→22:26)
[2024-05-14] MEDS: ACETYLCYSTEINE RT SOL 10% 4 ML NEBU 3 ML INH ×2 (11:55→19:45)
--- NOTE | 2024-05-14 13:12 | ESPR_ITS ---
<Statement entered by Natacha Mason MD - 05/16/24 13:07> I personally evaluated the patient appears to be doing better still has general weakness requires physical therapy recommend continue medical management and possibly group home facility placement agree with the treatment plan recommendation as documented by PGY 2 Dr. Maninder Fischer Documentation for date of: 05/14/24 Subjective Subjective Interval history: Patient seen and assessed at bedside. Patient on high flow nasal cannula. Patient had rapid response yesterday due to shortness of breath. Patient denies any active chest pain at this time. Exam Vital Signs Temp Pulse Resp BP Pulse Ox O2 Del Method O2 Flow Rate 96.8 F 75 20 136/72 H 93 L Oxy Mask 20 05/14/24 12:00 05/14/24 12:00 05/14/24 12:00 05/14/24 12:00 05/14/24 12:00 05/14/24 12:00 05/14/24 12:00 FiO2 100 05/14/24 12:00 Narrative Exam GENERAL: Frail and elderly appearing female. On high flow nasal cannula CARDIOVASCULAR: RRR, systolic murmur cardiac apex. No rubs or gallops. LUNGS: Rhonchi on auscultation both lower lobes. EXTREMITIES: No edema noted lower extremities. Chronic venous stasis skin changes. SKIN: Warm and dry, no jaundice/rashes. Objective Labs 05/14/24 05:50 05/14/24 05:50 Labs: Laboratory Results - last 24 hr 05/14/24 05:50 WBC 4.2 D RBC 2.96 L Hgb 10.1 L Hct 30.5 L MCV 103 H MCH 34.1 MCHC 33.1 RDW Std Deviation 63.8 H Plt Count 137 L D Neut % (Auto) 41 Lymph % (Auto) 48 [place] % (Auto) 10 Eos % (Auto) 0 Baso % (Auto) 0 Neut # (Auto) 1.7 L Lymph # (Auto) 2.0 [place] # (Auto) 0.4 Eos # (Auto) 0.0 Baso # (Auto) 0.0 Immature Gran # (Auto) 0.03 H Absolute Nucleated RBC 0.03 H Immature Gran % 1 H Nucleated RBC % 1 H D-Dimer 492 Puncture Site Right Radial ABG pH 7.47 H ABG pCO2 47 ABG pO2 43 L* ABG HCO3 34 H ABG O2 Saturation 81 L ABG Base Excess 9 H FiO2 100 Sodium 142 Potassium 3.8 Chloride 102 Carbon Dioxide 31.2 H Anion Gap 9 BUN 46 H Creatinine 1.1 Estim Creat Clear Calc 31.1 L eGFR 49 L BUN/Creatinine Ratio 42 H Glucose 106 Calculated Osmolality 295 Calcium 9.2 Corrected Calcium 9.4 Phosphorus 2.4 Magnesium 2.1 Total Bilirubin 0.4 AST 30 ALT 18 Alkaline Phosphatase 37 L Troponin I 0.030 Total Protein 6.7 Albumin 3.7 Globulin 3.0 Albumin/Globulin Ratio 1.2 ABG Interpretation ABG results: 05/14/24 05:50 ABG pH 7.47 H ABG pCO2 47 ABG pO2 43 L* ABG HCO3 34 H ABG O2 Saturation 81 L ABG Base Excess 9 H Quality Measures Quality Measures sepsis Current suspected stage: sepsis Possible source: pulmonary Blood cultures ordered: completed in ED Antibiotic ordered: Yes and none Advance care planning discussed with:: patient and child Assessment & Plan Assessment Current Active Medications: Generic Name Dose Route Start Last Admin Trade Name Freq PRN Reason Stop Dose Admin Acetaminophen 650 mg 05/10/24 10:45 05/12/24 22:46 Acetaminophen 325 Mg Tablet PO 06/09/24 10:44 650 mg Q6H PRN Administration Fever >100.4 or mild pain 1-3 Acetylcysteine 3 ml 05/14/24 13:00 Acetylcysteine Rt Ruma 10% 4 Ml Nebu INH 06/13/24 12:59 Q6HRRT WILLIE Albuterol/Ipratropium 3 ml 05/10/24 10:45 05/14/24 03:22 Albuterol/Ipratropium (Duoneb) Rt Ruma 3 Ml Nebu INH 06/09/24 10:44 3 ml Q2HR PRN Administration SHORTNESS OF BREATH OR WHEEZE Albuterol/Ipratropium 3 ml 05/10/24 13:00 05/14/24 11:54 Albuterol/Ipratropium (Duoneb) Rt Ruma 3 Ml Nebu INH 06/09/24 12:59 3 ml Q6HRRT WILLIE Administration Amiodarone HCl 200 mg 05/10/24 21:00 05/14/24 12:37 Amiodarone Hcl 200 Mg Tablet PO 06/09/24 20:59 Not Given BID WILLIE Azithromycin 250 mg 05/11/24 09:00 05/14/24 10:38 Azithromycin 250 Mg Tablet PO 05/18/24 08:59 250 mg QDAY WILLIE Administration Balsam [place] Oil 0 gm 05/11/24 21:00 05/14/24 12:37 Balsam [place] Oil (Venelex) 60 Gm Tube TOP 06/10/24 20:59 Not Given BID WILLIE Bumetanide 1 mg 05/10/24 21:00 05/14/24 10:39 Bumetanide Inj 0.25 Mg/Ml Vial 4 Ml IVP 06/09/24 20:59 1 mg BID WILLIE Administration Carvedilol 3.125 mg 05/10/24 17:30 05/14/24 10:38 Carvedilol 3.125 Mg Tablet PO 06/09/24 17:29 3.125 mg BIDWM WILLIE Administration Enoxaparin Sodium 30 mg 05/12/24 09:00 05/13/24 12:52 Enoxaparin Sod Inj 30 Mg/0.3 Ml Syringe SC 05/26/24 08:59 30 mg QDAY WILLIE Administration Guaifenesin 200 mg 05/14/24 09:52 Guaifenesin Syrup 200 Mg/10 Ml Udc PO 06/13/24 09:51 QID PRN CONGESTION Protocol Piperacillin/Tazobactam/Dextrose 3.375 gm in 50 mls @ 12.5 mls/hr 05/14/24 14:00 Zosyn IV 05/21/24 13:59 Q8HR WILLIE Meclizine HCl 25 mg 05/12/24 14:52 05/13/24 16:33 Meclizine Hcl 25 Mg Tablet PO 06/11/24 14:51 25 mg TID PRN Administration Vertigo or Dizziness Melatonin 3 mg 05/11/24 21:00 05/13/24 21:33 Melatonin 3 Mg Tablet PO 06/10/24 20:59 3 mg HS WILLIE Administration Multi-Ingredient Ointment 0 oz 05/11/24 21:00 05/14/24 12:37 Min Oil/Pet,White (Eucerin) Cr 16 Oz Btl TOP 06/10/24 20:59 Not Given BID WILLIE Oseltamivir Phosphate 30 mg 05/10/24 18:00 05/14/24 12:37 Oseltamivir 30 Mg Capsule PO 05/17/24 17:59 Not Given QDAY WILLIE Sacubitril/Valsartan 1 tab 05/11/24 09:00 05/14/24 12:38 Sacubitril 24 Mg/Valsartan 26 Mg Tablet PO 06/10/24 08:59 Not Given BID WILLIE Sennosides 1 tab 05/10/24 10:50 Senna Tablet PO 06/09/24 10:49 BID PRN CONSTIPATION Protocol Spironolactone 25 mg 05/12/24 10:15 05/14/24 12:38 Spironolactone 25 Mg Tablet PO 06/11/24 10:14 Not Given QDAY WILLIE Plan 88-year-old female with PMHx of CHF, EF 30-35% (12/2023), A-fib s/p pacemaker/defibrillator, COPD on 3 L home oxygen, HTN, admitted for AHRF likely 2/2 CHF vs. COPD exacerbation, versus pneumonia. Cardiology consulted for management of CHF and A-fib. #Acute on chronic hypoxic respiratory failure secondary to CHF and pneumonia #HFrEF 30 to 35% #History of A-fib ?Patient on Bumex IV 1 mg twice daily ?Continue patient on Coreg 3.125 twice daily ?Continue patient on Entresto ?Continue patient on Amio 200 twice daily ?[id number] score of? 5, 10% stroke risk ? Continue spironolactone as tolerated ?Keep potassium above 4 and magnesium above 2 ?Patient not interested in taking Eliquis 2.5 mg at this time as she is worried about bleeding. Patient made aware of risks of stroke and she understands risk of not having anticoagulation on board. Daughter present at bedside during conversation. #AMBROCIO #Pneumonia #COPD exacerbation #Hypertension To be managed by primary team Case discussed with mechanical design drafter Dr. Marlon Fischer MD PGY3.
[2024-05-14] MEDS: PIPER/TAZO 3.375 GM 3.375 GM/50 ML BAG IV ×2 (13:50→22:10)
--- NOTE | 2024-05-14 14:23 | PC.SS ---
SS Update: patient placed on Bipap as no improvements from highflow.
[2024-05-14] MEDS: ACETAMINOPHEN 325 MG TABLET 650 MG PO ×2 (16:04→22:25)
[2024-05-14] MEDS: PANTOPRAZOLE 40 MG TABLET PO (17:16)
--- NOTE | 2024-05-14 17:20 | XR_ITS ---
Examination: Abdomen AP single view Technique: AP portable supine abdomen, single view Exam date and time: May 14, 2024 1756 hrs. Indications: Abdominal pain today. Findings: Large amounts of stool in the rectosigmoid A few air distended small bowel loops No free air Heavy abdominal aortic calcification with ectatic appearing thoracic aorta Severe osteopenia Impression: Large amounts of stool in the rectosigmoid Heavy incomplete calcification abdominal aorta, consider abdominal sonography follow-up to exclude abdominal aortic aneurysmal dilatation
--- NOTE | 2024-05-14 17:39 | PC.NURSE ---
came change from high flow to 1L oxymask,o2 sat 98%.still having stomach pain,will order another med
[2024-05-14] MEDS: HYOSCYAMINE SULF 0.125 MG TAB.SUBL PO (17:54)
[2024-05-14] MEDS: AMIODARONE HCL 200 MG TABLET PO (22:25)
[2024-05-14] MEDS: SACUBITRIL 24 MG/VALSARTAN 26 MG TABLET 1 TAB PO (22:25)
[2024-05-14] MEDS: MELATONIN 3 MG TABLET PO (22:25)
[2024-05-14] MEDS: BALSAM PERU/CASTOR OIL (Venelex) 60 GM TUBE TOP (22:25)
[2024-05-14] MEDS: MIN OIL/PET,WHITE (Eucerin) CR 16 OZ BTL TOP (22:26)
[2024-05-15] VITALS (15 sets, daily range): BP systolic 92–135; BP diastolic 59–88; PULSE 62–79; RESP 16–73; TEMP 36–36.5; O2SAT 92–98; BMI 22.8
--- NOTE | 2024-05-15 00:23 | PC.NURSE ---
DR. MENCHACA NOTIFIED THAT PT CONTINUES TO HAVE LUQ ABDOMINAL PAIN. TYLENOL WAS INEFFECTIVE. PT NOW WITH BM X2. STATES SHE WILL ORDER NORCO AND WILL RELAY TO DAY TEAM THAT PT CONTINUES TO HAVE ABD PAIN.
[2024-05-15] MEDS: HYDROcodone/APAP 5/325 TABLET 1 TAB PO (00:39)
[2024-05-15] MEDS: ONDANSETRON INJ 2 MG/ML INJ 2 ML 4 MG IV ×2 (01:03→19:53)
[2024-05-15] MEDS: PIPER/TAZO 3.375 GM 3.375 GM/50 ML BAG IV ×2 (05:30→14:22)
[2024-05-15] MEDS: ACETYLCYSTEINE RT SOL 10% 4 ML NEBU 3 ML INH ×3 (06:45→18:30)
[2024-05-15] MEDS: ALBUTEROL/IPRATROPIUM (Duoneb) RT SOL 3 ML NEBU INH ×4 (06:45→20:10)
[2024-05-15 07:03] LABS: Basophils % (Auto) 0 % (0-2.5); Eosinophils % (Auto) 0 % (0-10); Hematocrit 34.9 % (36.0-46.0); Hemoglobin 11.2 g/dL (12.0-16.0); Immature Granulocytes % (Auto) 1 % (0-0); Immature Granulocytes Auto 0.04 Thou/mm3 (0.00-0.00); Lymphocytes # (Auto) 0.8 Thou/mm3 (1.0-4.8); Lymphocytes % (Auto) 17 % (10-50); Mean Corpuscular HGB Conc 32.1 g/dl (31.0-37.0); Mean Corpuscular Volume 106 fL (80-100); Monocytes # (Auto) 0.4 Thou/mm3 (0.0-0.8); Monocytes % (Auto) 10 % (0-12); Neutrophils # (Auto) 3.3 Thou/mm3 (1.8-7.7); Neutrophils % (Auto) 73 % (37-80); Nucleated Red Blood Cell # 0.05 Thou/mm3 (0.00-0.00); Nucleated Red Blood Cell % 1 /100 WBC (0); Platelet Count 204 Thou/mm3 (140-440); RDW Standard Deviation 66.5 fL (36.4-46.3); Red Blood Count 3.29 Miln/mm3 (4.00-5.20); White Blood Count 4.5 Thou/mm3 (3.6-11.0)
[2024-05-15 07:46] LABS: Alanine Aminotransferase 13 U/L (10-49); Albumin, Serum 3.8 gm/dL (3.4-4.8); Albumin/Globulin Ratio 1.4 (1.2-2.2); Alkaline Phosphatase 36 U/L (46-116); Anion Gap 12 (7-16); Aspartate Amino Transferase 17 U/L (0-34); BUN/Creatinine Ratio 37 Ratio (12-20); Bilirubin,Total 0.5 mg/dL (0.3-1.2); Blood Urea Nitrogen 48 mg/dL (9-23); Calcium (Corrected) 9.2 mg/dL (8.5-10.1); Carbon Dioxide 32.2 mMol/L (20.0-31.0); Chloride 99 mMol/L (98-107); Creatinine (Component) 1.3 mg/dL (0.6-1.3); Estimated Creatinine Clearance 26.3 mL/min (>60); Globulin 2.8 gm/dL (2.3-3.5); Glucose 160 mg/dL (74-106); Magnesium 2.1 mg/dL (1.6-2.6); Osmolality,Calculated 300 (275-295); Phosphorous 4.9 mg/dL (2.4-5.1); Potassium 3.8 mMol/L (3.4-5.1); Sodium 143 mMol/L (136-145); Total Protein 6.6 gm/dL (5.7-8.2); eGFR 40 See Note
[2024-05-15] MEDS: PANTOPRAZOLE 40 MG TABLET PO (08:33)
[2024-05-15] MEDS: AZITHROMYCIN 250 MG TABLET PO (08:33)
[2024-05-15] MEDS: SPIRONOLACTONE 25 MG TABLET PO (08:34)
[2024-05-15] MEDS: SACUBITRIL 24 MG/VALSARTAN 26 MG TABLET 1 TAB PO (08:34)
[2024-05-15] MEDS: AMIODARONE HCL 200 MG TABLET PO (08:34)
[2024-05-15] MEDS: carVEDILOL 3.125 MG TABLET PO (08:34)
[2024-05-15] MEDS: OSELTAMIVIR 30 MG CAPSULE PO (08:35)
[2024-05-15] MEDS: BUMETANIDE INJ 0.25 MG/ML VIAL 4 ML 1 MG IVP (08:35)
[2024-05-15] MEDS: MIN OIL/PET,WHITE (Eucerin) CR 16 OZ BTL TOP (08:35)
[2024-05-15] MEDS: BALSAM PERU/CASTOR OIL (Venelex) 60 GM TUBE TOP (08:35)
[2024-05-15 10:06] LABS: Base Excess 8 (-3-3); HCO3 35 mEq/L (20-26); Inspired O2, VO2 Liters 2 L/min; O2 Saturation 94 % (91-98); PCO2 55 mmHg (32.0-48.0); PO2 69 mmHg (83-108)
--- NOTE | 2024-05-15 10:06 | ESPR_ITS ---
<Statement entered by María Harvey MD - 05/15/24 17:29> I discussed with and supervised my co-resident involved in the care of this patient. I agree with the assessment and plan as documented above. María Harvey,PGY-3 Disclaimer: Despite multiple revisions, due to the dictation software being used, the document below may not be free of grammatical errors including phonetic/typographic errors. However, this does not deter from our commitment to providing health care in the patient's best interest in mind. Documentation for date of: 05/15/24 Subjective Subjective Interval history: Overnight complained of abdominal pain, given NORCO X1, today still has 8/10 epigastric pain. Appears altered this morning, difficult to arouse. Answering questions inappropriately. I called daughter, Rosalina, this afternoon and updated her on her mother status. She said she was in this morning and she to was concerned about her mother's health as her mentation appeared to have declined over the last few days. Daughter had tried encouraging patient to eating her meal however her mom stating she wants to go home. I told Rosalina that we are currently waiting on abdominal CT to rule out any abdominal pathology. Daughter has asked if she can take her mother (per her wishes) home if CT is okay. She believes its past if she can be around family and friends. Will continue with management for now, will update family regularly. Daughter will be in this afternoon after her doctor's appointment. Exam Vital Signs Temp Pulse Resp BP Pulse Ox O2 Del Method O2 Flow Rate 97.5 F 72 22 H 103/70 98 Nasal Cannula 3 05/15/24 08:00 05/15/24 08:35 05/15/24 08:00 05/15/24 08:35 05/15/24 08:00 05/15/24 08:00 05/15/24 08:00 FiO2 100 05/15/24 04:00 Narrative Exam GENERAL: Appearing elderly male, cachectic, on NC, in moderate distress, lethargic HEENT: NCAT.?SUKHDEV. Oral mucosa is moist. Patent Nares NECK: Supple, nontender, no thyromegaly, no meningismus, no JVD, no step offs CARDIOVASCULAR: RRR, no m/g/r LUNGS: Bilateral coarse breath sounds and rhonchi improving. Symmetrical chest rise. No intercostal subcostal retraction. ABDOMEN: Soft, flat, nontender. No guarding/rebound tenderness/masses. +BS EXTREMITIES: Bilateral lower extremity YULIA resolved, chronic venous stasis and senile purpura. Pulses intact bilaterally. SKIN: Warm and dry, no jaundice/rashes. MSK: No lumbar or midline, no CVA, no paraspinal muscle spasm or tenderness. NEURO: HUA x4, CN II-XII grossly intact.?No focal neurologic deficits. PSYCHIATRIC: lethargic, sleepy, cooperative, no SI or HI or hallucinations. Objective Labs 05/15/24 06:19 05/15/24 06:19 Labs: Laboratory Results - last 24 hr 05/14/24 05/15/24 17:42 06:19 WBC 4.5 RBC 3.29 L Hgb 11.2 L Hct 34.9 L MCV 106 H MCH 34.0 MCHC 32.1 RDW Std Deviation 66.5 H Plt Count 204 D Neut % (Auto) 73 Lymph % (Auto) 17 [place] % (Auto) 10 Eos % (Auto) 0 Baso % (Auto) 0 Neut # (Auto) 3.3 Lymph # (Auto) 0.8 L [place] # (Auto) 0.4 Eos # (Auto) 0.0 Baso # (Auto) 0.0 Immature Gran # (Auto) 0.04 H Absolute Nucleated RBC 0.05 H Immature Gran % 1 H Nucleated RBC % 1 H Sodium 143 Potassium 3.8 Chloride 99 Carbon Dioxide 32.2 H Anion Gap 12 BUN 48 H Creatinine 1.3 Estim Creat Clear Calc 26.3 L eGFR 40 L BUN/Creatinine Ratio 37 H Glucose 160 H D Calculated Osmolality 300 H Calcium 9.0 Corrected Calcium 9.2 Phosphorus 4.9 Magnesium 2.1 Total Bilirubin 0.5 AST 17 ALT 13 Alkaline Phosphatase 36 L Troponin I 0.020 Total Protein 6.6 Albumin 3.8 Globulin 2.8 Albumin/Globulin Ratio 1.4 ABG Interpretation ABG results: 05/14/24 05:50 ABG pH 7.47 H ABG pCO2 47 ABG pO2 43 L* ABG HCO3 34 H ABG O2 Saturation 81 L ABG Base Excess 9 H Quality Measures Quality Measures sepsis Current suspected stage: sepsis Possible source: pulmonary Blood cultures ordered: completed in ED Antibiotic ordered: Yes and none Advance care planning discussed with:: patient Assessment & Plan Assessment Current Active Medications: Generic Name Dose Route Start Last Admin Trade Name Freq PRN Reason Stop Dose Admin Acetaminophen 650 mg 05/10/24 10:45 05/14/24 22:25 Acetaminophen 325 Mg Tablet PO 06/09/24 10:44 650 mg Q6H PRN Administration Fever >100.4 or mild pain 1-3 Hydrocodone Bitart/Acetaminophen 1 tab 05/15/24 00:26 05/15/24 00:39 Hydrocodone/Apap 5/325 Tablet PO 05/20/24 00:25 1 tab Q6HR PRN Administration PAIN SCALE 4-10(Mod-Sev Acetylcysteine 3 ml 05/14/24 13:00 05/15/24 06:45 Acetylcysteine Rt Ruma 10% 4 Ml Nebu INH 06/13/24 12:59 3 ml Q6HRRT WILLIE Administration Albuterol/Ipratropium 3 ml 05/10/24 10:45 05/14/24 03:22 Albuterol/Ipratropium (Duoneb) Rt Ruma 3 Ml Nebu INH 06/09/24 10:44 3 ml Q2HR PRN Administration SHORTNESS OF BREATH OR WHEEZE Albuterol/Ipratropium 3 ml 05/10/24 13:00 05/15/24 06:45 Albuterol/Ipratropium (Duoneb) Rt Ruma 3 Ml Nebu INH 06/09/24 12:59 3 ml Q6HRRT WILLEI Administration Amiodarone HCl 200 mg 05/10/24 21:00 05/15/24 08:34 Amiodarone Hcl 200 Mg Tablet PO 06/09/24 20:59 200 mg BID WILLIE Administration Balsam [place] Oil 0 gm 05/11/24 21:00 05/15/24 08:35 Balsam [place] Oil (Venelex) 60 Gm Tube TOP 06/10/24 20:59 1 applicatio BID WILLIE Administration Bumetanide 1 mg 05/10/24 21:00 05/15/24 08:35 Bumetanide Inj 0.25 Mg/Ml Vial 4 Ml IVP 06/09/24 20:59 1 mg BID WILLIE Administration Carvedilol 3.125 mg 05/10/24 17:30 05/15/24 08:34 Carvedilol 3.125 Mg Tablet PO 06/09/24 17:29 3.125 mg BIDWM WILLIE Administration Enoxaparin Sodium 30 mg 05/12/24 09:00 05/15/24 08:36 Enoxaparin Sod Inj 30 Mg/0.3 Ml Syringe SC 05/26/24 08:59 Not Given QDAY WILLIE Guaifenesin 200 mg 05/14/24 09:52 Guaifenesin Syrup 200 Mg/10 Ml Udc PO 06/13/24 09:51 QID PRN CONGESTION Protocol Piperacillin/Tazobactam/Dextrose 3.375 gm in 50 mls @ 12.5 mls/hr 05/14/24 14:00 05/15/24 05:30 Zosyn IV 05/21/24 13:59 12.5 mls/hr Q8HR WILLIE Administration Lactulose 20 gm 05/15/24 10:00 Lactulose Syrup 20 Gm/30 Ml Udc PO 06/14/24 09:59 BID WILLIE Protocol Meclizine HCl 25 mg 05/12/24 14:52 05/13/24 16:33 Meclizine Hcl 25 Mg Tablet PO 06/11/24 14:51 25 mg TID PRN Administration Vertigo or Dizziness Melatonin 3 mg 05/11/24 21:00 05/14/24 22:25 Melatonin 3 Mg Tablet PO 06/10/24 20:59 3 mg HS WILLIE Administration Multi-Ingredient Ointment 0 oz 05/11/24 21:00 05/15/24 08:35 Min Oil/Pet,White (Eucerin) Cr 16 Oz Btl TOP 06/10/24 20:59 1 appln BID WILLIE Administration Ondansetron HCl 4 mg 05/15/24 00:45 05/15/24 01:03 Ondansetron Inj 2 Mg/Ml Inj 2 Ml IV 06/14/24 00:44 4 mg Q6HR PRN Administration NAUSEA OR VOMITING Protocol Oseltamivir Phosphate 30 mg 05/10/24 18:00 05/15/24 08:35 Oseltamivir 30 Mg Capsule PO 05/17/24 17:59 30 mg QDAY WILLIE Administration Pantoprazole Sodium 40 mg 05/14/24 17:15 05/15/24 08:33 Pantoprazole 40 Mg Tablet PO 06/13/24 17:14 40 mg QDAY WILLIE Administration Sacubitril/Valsartan 1 tab 05/11/24 09:00 05/15/24 08:34 Sacubitril 24 Mg/Valsartan 26 Mg Tablet PO 06/10/24 08:59 1 tab BID WILLIE Administration Sennosides 2 tab 05/15/24 10:00 Senna Tablet PO 06/14/24 09:59 BID WILLIE Protocol Spironolactone 25 mg 05/12/24 10:15 05/15/24 08:34 Spironolactone 25 Mg Tablet PO 06/11/24 10:14 25 mg QDAY WILLIE Administration Plan In summary: 88-year-old female with PMHx of CHF, EF 30-35% (12/2023), A-fib s/p pacemaker/defibrillator, COPD on 3 L home oxygen, HTN, admitted for AHRF likely 2/2 CHF vs. COPD exacerbation, versus pneumonia. Initially the plan to go discharge with home health, however patient refused, currently pending SNF. Overnight had a rapid response for hypoxemia, desatting in 70s. ABG showed low oxygen but normal pCO2. CXR showed improved right-sided pneumonia, D-dimer was negative, EKG no acute ST changes. Continued on ABX. Previously on BiPAP, now on 2L NC. Overall, appears to be detoriating with worsening mental status and alertness, despite aggressive management. Poor meal intake overall, no appetite. May benefit from GOC at this point. 1/6 Complained of abdominal pain, trop were negative, CXR stool impaction, had large BM after enema. Overnight given NORCO for pain. Reports 8/10 epigastric pain this AM. Unclear if it's delirium or true pain. Will continue to monitor. She was using home PRN BUMEX for lower extremity edema and shortness of breath, had some improvement in edema, but persistent shortness of breath. On admission BNP elevated 3280, troponin negative, chest x-ray showed congestion. Superimposed with pneumonia. She was 2/4 SIRS positive with fever and tachycardia which have resolved. Positive influenza A, negative COVID and cocci. Appreciate recommendation from cardiology. Acute Encepholopathy vs Delirium Failure to thrive Mentation poor this morning, appears altered, answering questions in appropriately. Overall health declining despite treatment, although labs are improving. Poor diet intake, declining meal consumption, state has no appetite. Will follow-up with ABG and ammonia. I believe she is appropriate for GOC discussion but will continue with management. ? Frequent reorientation ? Keep windows open in day time ? Limit night awakening ? Encourage family visits ? AVOID narcotics ? Ensure with meals ? Pending AMMONIA level ? Pending ABG Acute on Chronic hypoxic respiratory failure 2/2: CHF exacerbation VS COPD exacerbation VS Sepsis / influenza A pneumonia, Sepsis resolved Hx of CHF, EF 30?35 (12/2023) Continued on diuresis with BUMEX, and GDMT. Overall -1.0 L. Edema and lung crackles, resolved. Continued on ABX and 2L NC. Oxygen demand improving. No fever or leukocytosis. However mentation is poor. Will follow-up with ABG and other labs. No signs of volume overload, will d/c LASIX. ? Continue home ENTRESTO BID ? HOLD home BUMEX 1 mg BID ? Continue home Spironolactone 25 Mg daily ? Continue AZITHROMYCIN 250 mg (05/10 to [present]) ? Continue ZOSYN 3.375 mg (05/14 to [present]) ? Continue TAMIFLU (05/10 to [present]) ? Continue DuoNebs Q6H scheduled, Q2H PRN ? Continue MUCOMYST Q6H ? Continue GUAIFENESIN 200 mg QID ? Continue Chest physiotherapy ? Strict ANTONI's ? Fluid restriction 1500 cc daily ? UCx pending, negative Bcx and nasal MRSA A-fib with RVR, rate controlled Paroxysmal A-fib HTN History of paroxysmal A-fib. Admission EKG showed fib RVR with HR 114. Currently rate controlled. Currently asymptomatic without palpitation or chest pain. Anticipate HTN improvement with diuresis. [id number] 6 indicated 13.6% risk of stroke/TIA/systemic embolism. HAS-BLED 6 indicating high risk for bleed. On previous admission ELIQUIS was held in settings of GI bleed. Cardiology recommended ELIQUIS, srinivasan refused due to previous hx of GI bleed. Patient okay with LOVENOX DVT prophylaxis. ? Continue home AMIODARONE 200 mg BID ? Continue home CARVEDILOL as above ? Telemetry E. Coli UTI Admission UA showed pyuria, patient stated she is asymptomatic. Previous culture grew Enterococcus faecalis and MDR Staph epidermidis. Culture this admission grew E. coli. AMBROCIO Likely secondary to renal congestion in the setting of volume overload CR 1.4 then 1.4 on repeat (baseline 1.2), GFR 36 (baseline 40-55). Management as below. ? Diuresis as above ? Renally dose meds, avoid overdiuresis and NEPHROTOXINS Asymptomatic pyuria UA showed WBCs, leukocyte esterase, rare bacteria. Patient otherwise asymptomatic. Previously grew Enterococcus faecalis and MDR staph epididymis. Will continue with ANTIBIOTICS as above, adjust as needed based on culture. ? Pending urine culture Insomnia Unable to sleep overnight, appears slightly agitated today due to lack of sleep. ? Continue MELATONIN HS ? AVOID BENADRYL Abdominal pain likely 2/2 Constipation vs. PUD Abdominal XR showed large stool impaction, had large BM after enema. Likely still constipated. ? PROTONIX 40 daily ? Bowel Reg Health maintenance Diet: Cardiac diet GI prophylaxis: Not indicated DVT prophylaxis: LOVENOX Antibiotics: AZITHROMYCIN, ZOSYN CODE STATUS: DNR Disposition: Pending symptoms improvement Patient case was discussed with attending, Ck Santos MD and senior residents Dr. Harvey and Dr. Phelps. Jose Bullock DO PGYI Attending Provider Attestation/Addendum I reviewed labs, imaging, EKG, home medications and prior available records. Face to face evaluation was performed by me. I have personally examined the patient and discussed assessment and plan with the IM team. I reviewed the resident note and agree with the plan with exceptions as below. Acute encephalopathy Acute abdominal pain Acute hypoxic respiratory failure CHF exacerbation HFpEF EF 30 to 35% Right lower lobe pneumonia Hospital-acquired pneumonia Possible aspiration pneumonia E. coli UTI Atrial fibrillation with RVR AMBROCIO Thrombocytopenia Patient was lethargic in the morning of 05/15. Differential diagnosis includes hypoactive delirium in the setting of hospital stay versus medication side effect from using [place] versus constipation versus hypoxia/hypercarbia. Ordered ammonia level. Ordered repeat ABG. Ordered abdominal x-ray that showed significant amount of stool. Ordered constipation medications after which patient had a bowel movement however she continued to have worsening abdominal pain. Ordered CT scan of the abdomen/pelvis to rule out acute abdominal pathologies. Continue IV Zosyn Continue chest physiotherapy is on guaifenesin Sent sputum culture Aspiration precautions Holding diuresis as patient looks more dry Continue p.o. amiodarone Kidney function improved. Monitor kidney function. Avoid nephrotoxins. Renally dosed medications Monitor platelet level. Monitor for bleeding Continue Entresto and Coreg
[2024-05-15 10:10] LABS: Allen Test Performed/OK; Puncture Site Right Radial
[2024-05-15] MEDS: LACTULOSE SYRUP 20 GM/30 ML UDC PO (11:28)
[2024-05-15 12:18] LABS: Ammonia < 10 uMol/L (11-32)
--- NOTE | 2024-05-15 14:08 | ESPR_ITS ---
<Statement entered by Natacha Mason MD - 05/18/24 09:04> I personally examined the patient evaluated with the resident physician Dr. Maninder Fischer, PGY 2 MD patient is doing a little better but still general weakness will require physical therapy possible transfer to intermediate facility will monitor the patient closely as an outpatient following discharge Documentation for date of: 05/15/24 Subjective Subjective Interval history: Patient assessed at bedside. Patient currently on 2 L nasal cannula saturating well. Patient states to be feeling bad and has abdominal pain. Abdominal x-ray shows constipation. Patient pending PT evaluation, although patient does not want to do SNF. In room monitor shows incorrect heart rate, telemetry shows heart rate in the 60s/70s while room monitor shows heart rate in the low 20s likely mechanical malfunction. Patient denying any chest pain. Exam Vital Signs Temp Pulse Resp BP Pulse Ox O2 Del Method O2 Flow Rate 97.1 F 62 32 H 98/62 98 Nasal Cannula 2 05/15/24 12:00 05/15/24 13:22 05/15/24 13:22 05/15/24 12:00 05/15/24 13:22 05/15/24 12:00 05/15/24 13:22 FiO2 100 05/15/24 04:00 Narrative Exam GENERAL: Frail and elderly appearing female. On 2 L nasal cannula. CARDIOVASCULAR: RRR, systolic murmur cardiac apex. No rubs or gallops. LUNGS: Chest clear to auscultation. No rales or rhonchi on auscultation. EXTREMITIES: No edema noted lower extremities. Chronic venous stasis skin changes. SKIN: Warm and dry, no jaundice/rashes. Objective Labs 05/15/24 06:19 05/15/24 06:19 Labs: Laboratory Results - last 24 hr 05/14/24 05/15/24 05/15/24 17:42 06:19 09:49 WBC 4.5 RBC 3.29 L Hgb 11.2 L Hct 34.9 L MCV 106 H MCH 34.0 MCHC 32.1 RDW Std Deviation 66.5 H Plt Count 204 D Neut % (Auto) 73 Lymph % (Auto) 17 [place] % (Auto) 10 Eos % (Auto) 0 Baso % (Auto) 0 Neut # (Auto) 3.3 Lymph # (Auto) 0.8 L [place] # (Auto) 0.4 Eos # (Auto) 0.0 Baso # (Auto) 0.0 Immature Gran # (Auto) 0.04 H Absolute Nucleated RBC 0.05 H Immature Gran % 1 H Nucleated RBC % 1 H Puncture Site Right Radial ABG pH 7.40 ABG pCO2 55 H ABG pO2 69 L D ABG HCO3 35 H ABG O2 Saturation 94 ABG Base Excess 8 H Oxygen Liter Flow 2 Sodium 143 Potassium 3.8 Chloride 99 Carbon Dioxide 32.2 H Anion Gap 12 BUN 48 H Creatinine 1.3 Estim Creat Clear Calc 26.3 L eGFR 40 L BUN/Creatinine Ratio 37 H Glucose 160 H D Calculated Osmolality 300 H Calcium 9.0 Corrected Calcium 9.2 Phosphorus 4.9 Magnesium 2.1 Total Bilirubin 0.5 AST 17 ALT 13 Alkaline Phosphatase 36 L Ammonia Troponin I 0.020 Total Protein 6.6 Albumin 3.8 Globulin 2.8 Albumin/Globulin Ratio 1.4 05/15/24 11:30 WBC RBC Hgb Hct MCV MCH MCHC RDW Std Deviation Plt Count Neut % (Auto) Lymph % (Auto) [place] % (Auto) Eos % (Auto) Baso % (Auto) Neut # (Auto) Lymph # (Auto) [place] # (Auto) Eos # (Auto) Baso # (Auto) Immature Gran # (Auto) Absolute Nucleated RBC Immature Gran % Nucleated RBC % Puncture Site ABG pH ABG pCO2 ABG pO2 ABG HCO3 ABG O2 Saturation ABG Base Excess Oxygen Liter Flow Sodium Potassium Chloride Carbon Dioxide Anion Gap BUN Creatinine Estim Creat Clear Calc eGFR BUN/Creatinine Ratio Glucose Calculated Osmolality Calcium Corrected Calcium Phosphorus Magnesium Total Bilirubin AST ALT Alkaline Phosphatase Ammonia < 10 L Troponin I Total Protein Albumin Globulin Albumin/Globulin Ratio ABG Interpretation ABG results: 05/14/24 05/15/24 05:50 09:49 ABG pH 7.47 H 7.40 ABG pCO2 47 55 H ABG pO2 43 L* 69 L D ABG HCO3 34 H 35 H ABG O2 Saturation 81 L 94 ABG Base Excess 9 H 8 H Quality Measures Quality Measures sepsis Current suspected stage: sepsis Possible source: pulmonary Blood cultures ordered: completed in ED Antibiotic ordered: Yes and none Advance care planning discussed with:: patient Assessment & Plan Assessment Current Active Medications: Generic Name Dose Route Start Last Admin Trade Name Freq PRN Reason Stop Dose Admin Acetaminophen 650 mg 05/10/24 10:45 05/14/24 22:25 Acetaminophen 325 Mg Tablet PO 06/09/24 10:44 650 mg Q6H PRN Administration Fever >100.4 or mild pain 1-3 Hydrocodone Bitart/Acetaminophen 1 tab 05/15/24 00:26 05/15/24 00:39 Hydrocodone/Apap 5/325 Tablet PO 05/20/24 00:25 1 tab Q6HR PRN Administration PAIN SCALE 4-10(Mod-Sev Acetylcysteine 3 ml 05/14/24 13:00 05/15/24 13:19 Acetylcysteine Rt Ruma 10% 4 Ml Nebu INH 06/13/24 12:59 3 ml Q6HRRT WILLIE Administration Albuterol/Ipratropium 3 ml 05/10/24 10:45 05/14/24 03:22 Albuterol/Ipratropium (Duoneb) Rt Ruma 3 Ml Nebu INH 06/09/24 10:44 3 ml Q2HR PRN Administration SHORTNESS OF BREATH OR WHEEZE Albuterol/Ipratropium 3 ml 05/10/24 13:00 05/15/24 13:19 Albuterol/Ipratropium (Duoneb) Rt Ruma 3 Ml Nebu INH 06/09/24 12:59 3 ml Q6HRRT WILLIE Administration Amiodarone HCl 200 mg 05/10/24 21:00 05/15/24 08:34 Amiodarone Hcl 200 Mg Tablet PO 06/09/24 20:59 200 mg BID WILLIE Administration Balsam [place] Oil 0 gm 05/11/24 21:00 05/15/24 08:35 Balsam [place] Oil (Venelex) 60 Gm Tube TOP 06/10/24 20:59 1 applicatio BID WILLIE Administration Bumetanide 1 mg 05/10/24 21:00 05/15/24 08:35 Bumetanide Inj 0.25 Mg/Ml Vial 4 Ml IVP 06/09/24 20:59 1 mg BID WILLIE Administration Carvedilol 3.125 mg 05/10/24 17:30 05/15/24 08:34 Carvedilol 3.125 Mg Tablet PO 06/09/24 17:29 3.125 mg BIDWM WILLIE Administration Enoxaparin Sodium 30 mg 05/12/24 09:00 05/15/24 08:36 Enoxaparin Sod Inj 30 Mg/0.3 Ml Syringe SC 05/26/24 08:59 Not Given QDAY WILLIE Guaifenesin 200 mg 05/14/24 09:52 Guaifenesin Syrup 200 Mg/10 Ml Udc PO 06/13/24 09:51 QID PRN CONGESTION Protocol Piperacillin/Tazobactam/Dextrose 3.375 gm in 50 mls @ 12.5 mls/hr 05/14/24 14:00 05/15/24 05:30 Zosyn IV 05/21/24 13:59 12.5 mls/hr Q8HR WILLIE Administration Lactulose 20 gm 05/15/24 10:00 05/15/24 11:28 Lactulose Syrup 20 Gm/30 Ml Udc PO 06/14/24 09:59 20 gm BID WILLIE Administration Protocol Meclizine HCl 25 mg 05/12/24 14:52 05/13/24 16:33 Meclizine Hcl 25 Mg Tablet PO 06/11/24 14:51 25 mg TID PRN Administration Vertigo or Dizziness Melatonin 3 mg 05/11/24 21:00 05/14/24 22:25 Melatonin 3 Mg Tablet PO 06/10/24 20:59 3 mg HS WILLIE Administration Multi-Ingredient Ointment 0 oz 05/11/24 21:00 05/15/24 08:35 Min Oil/Pet,White (Eucerin) Cr 16 Oz Btl TOP 06/10/24 20:59 1 appln BID WILLIE Administration Ondansetron HCl 4 mg 05/15/24 00:45 05/15/24 01:03 Ondansetron Inj 2 Mg/Ml Inj 2 Ml IV 06/14/24 00:44 4 mg Q6HR PRN Administration NAUSEA OR VOMITING Protocol Oseltamivir Phosphate 30 mg 05/10/24 18:00 05/15/24 08:35 Oseltamivir 30 Mg Capsule PO 05/17/24 17:59 30 mg QDAY WILLIE Administration Pantoprazole Sodium 40 mg 05/14/24 17:15 05/15/24 08:33 Pantoprazole 40 Mg Tablet PO 06/13/24 17:14 40 mg QDAY WILLIE Administration Sacubitril/Valsartan 1 tab 05/11/24 09:00 05/15/24 08:34 Sacubitril 24 Mg/Valsartan 26 Mg Tablet PO 06/10/24 08:59 1 tab BID WILLIE Administration Sennosides 2 tab 05/15/24 10:00 05/15/24 10:41 Senna Tablet PO 06/14/24 09:59 Not Given BID [facility] Protocol Spironolactone 25 mg 05/12/24 10:15 05/15/24 08:34 Spironolactone 25 Mg Tablet PO 06/11/24 10:14 25 mg QDAY WILLIE Administration Plan 88-year-old female with PMHx of CHF, EF 30-35% (12/2023), A-fib s/p pacemaker/defibrillator, COPD on 3 L home oxygen, HTN, admitted for AHRF likely 2/2 CHF vs. COPD exacerbation, versus pneumonia. Cardiology consulted for management of CHF and A-fib. #Acute on chronic hypoxic respiratory failure secondary to CHF and pneumonia #HFrEF 30 to 35% #History of A-fib ?Patient appears to be euvolemic, likely no more need for diuresis. Patient saturating well on 2 L nasal cannula ?Continue patient on Coreg 3.125 twice daily ?Continue patient on Entresto ?Continue patient on Amio 200 twice daily ?[id number] score of? 5, 10% stroke risk ? Continue spironolactone as tolerated ?Keep potassium above 4 and magnesium above 2 ?Patient not interested in taking Eliquis 2.5 mg at this time as she is worried about bleeding. Patient made aware of risks of stroke and she understands risk of not having anticoagulation on board. Daughter present at bedside during conversation. #AMBROCIO #Pneumonia #COPD exacerbation #Hypertension To be managed by primary team Case discussed with stone grader Dr. Marlon Fischer MD PGY3.
--- NOTE | 2024-05-15 14:48 | XR_ITS ---
Examination: CT chest, without intravenous contrast. CT abdomen, without intravenous contrast. CT pelvis, without intravenous contrast. 2-D sagittal and coronal reconstructions. 3-D reconstructions. Date and time of exam:May 15, 2024 1658 hours Comparison June 22, 2023 INDICATIONS: Coughing congestion this week, generalized abdominal pain, history CHF CTDI vol (mgy) 7.65 DLP (MGycm): 499 Technique: Multiple CT images, 3.0 mm slice thickness, obtained chest, abdomen, pelvis, with the high-resolution 64 slice scanner.. Sagittal and coronal 2-D reconstructions are obtained. 3-D reconstructions Low dose protocols were performed. One or more of the following dose reduction techniques were used; automated exposure control, adjustment of the mA and/or KV according to patient size, use of iterative reconstruction technique. Findings: Thoracic aortic calcification, AP dimension the thoracic aorta 38 mm Pulmonary artery segments are not enlarged Moderate enlargement left atrium left ventricle Heavy calcification left anterior descending coronary artery Significant pneumonia at both lung bases with minimal bilateral pleural fluid Liver is irregular in contour with mild ascites Gallbladder is distended with small gallstones No pancreatic mass Atrophic kidneys with moderate bilateral renal parenchymal scar formation Bilateral renal cysts, the largest in the left kidney with irregular margins, measuring 5.6 cm No renal or ureteral calculi Numerous fluid distended small bowel loops in the abdomen Normal appendix Abdominal aortic calcification Colonic diverticulosis, no diverticulitis difficult to assess given the ascites Abundant stool in the rectum with thickening the rectal wall No bladder mass No pelvic mass Severe osteopenia with severe chronic osteoporotic compressions L1, T12 Moderate narrowing hip joints Healed left hip fracture IMPRESSION: Moderate enlargement cardiac contour Heavy calcification left anterior descending coronary artery Significant bibasilar pneumonia Cirrhosis Mild ascites Distended gallbladder, recommend hepatobiliary sonography follow-up Atrophic kidneys with moderate bilateral renal parenchymal scar formation Multiple fluid distended small bowel loops suspicious for early small bowel obstruction, consider Gastrografin small bowel series follow-up Abundant stool in the rectum with thickening of the rectal wall, differential would include proctitis, recommend direct inspection of the rectum
--- NOTE | 2024-05-15 16:06 | PC.SS ---
Rounding Note: Patient still experiencing abdominal pain. Possible d/c home tomorrow.
--- NOTE | 2024-05-15 20:01 | XR_ITS ---
Examination: AP chest single view Technique one AP portable upright chest single view Exam date and time: May 15, 20242003 hrs. Comparison May 14, 2024 Indications: O2 desaturation today. Findings: Poor inspiratory effort Prominent vascular congestion Mild to moderate enlargement left ventricle Stable position cardiac leads Prominent osteopenia Impression: Mild CHF Consider superimposed pneumonia at the lung bases
--- NOTE | 2024-05-15 20:01 | EKG_ITS ---
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
[2024-05-15 20:05] LABS: Base Excess 7 (-3-3); HCO3 32 mEq/L (20-26); O2 Saturation 100 % (91-98); PCO2 47 mmHg (32.0-48.0); PO2 241 mmHg (83-108); pH, Arterial 7.44 (7.35-7.45)
[2024-05-15 20:06] LABS: Allen Test Performed/OK; Inspired Oxygen, FIO2 100 %; Puncture Site Right Brachial
--- NOTE | 2024-05-15 20:36 | PD.RESEVENT ---
Documentation for date of: 05/15/24 Event Note Event Note: Rapid Response Room: 263 Time: 19:45 Reason for Call: Vomiting, desaturation to 70s, and hypotension 60s/30s Patient presentation: Patient had clear yellow vomitus on gown, appeared awake, alert, but slow to respond and with labored breathing. Prior to rapid patient had almost completed a cup of gastrograffin solution but then vomited, which was witnessed in the room, no obvious aspiration was noted. Patient states nausea was relieved after vomiting. Vitals included hypotension of 60-70s/30-40s, HR 70s in NSR, RR 20s, O2 70s on 15L, Temp 97.0. Events: Patient was given Hi-Flow NC, at first without improvement, similar to rapid yesterday. Patient was given Zofran 4 mg IV x1 and given a short trial of BiPAP for 15 minutes supervised, patient saturation improved to 90s, patient was then taken off BiPAP to Hi-Flow and maintained saturation. Daughter, Rosalina is at the bedside and the patient's condition and deterioration was discussed. Patient confirms DNR/DNI status. Assessment: Patient vomiting secondary to SBO followed by hypoxia, possibly resulting in vaso-vagal episode with hypotension. New orders: ABG, CXR, CMP, lactate, sodium chloride breathing treatment, Hi-Flow O2, Zofran 4 mg IV. Stopped small bowel series for now. Patient was discussed with the attending, Dr. Titus and team residents Michael Yusuf PGY-1 and Josep Brewer PGY-1. Georgia Rhodes, PGY-2 ------ 21:50 ADDENDUM - Patient daughter Rosalina updated me that she spoke with the patient and both are in agreement to start comfort measures. Comfort care was discussed. Will not pursue further diagnostics, treatment, or aggressive measures. Morphine drip 1 mg/hr will be started as well as prn medications.
[2024-05-15] MEDS: KETOROLAC INJ 30 MG/ML VIAL IVP (21:28)
--- NOTE | 2024-05-15 21:58 | PC.NURSE ---
Dr Rhodes in room with patient and family Patient converted to Comfort Care new orders received.
[2024-05-15] MEDS: Morphine IV Drip 100mg/100ml 100 ML IV (22:20)
[2024-05-15] MEDS: SCOPOLAMINE 1 MG TDSY TOP (22:21)
[2024-05-16] VITALS: PULSE 68
[2024-05-16] MEDS: MORPHINE SULF INJ 10 MG/ML VIAL 2 MG IVP (01:34)
[2024-05-16 04:00] VITALS: PULSE 62
[2024-05-16 05:58] VITALS: PULSE 40; RESP 12; O2SAT 94
[2024-05-16 08:00] VITALS: BP 41/27; PULSE 60; RESP 23; TEMP 36.1; O2SAT 95
--- NOTE | 2024-05-16 08:31 | PC.SS ---
RAGMAN conducted bedside contact with patient. Present was patient's daughter, Rosalina Solano. Daughter confirmed patient's transition to comfort care. Patient is on morphine drip. Patient is imminent per bedside nurse.
[2024-05-16 08:34] VITALS: PULSE 38
[2024-05-16 08:40] VITALS: PULSE 0
--- NOTE | 2024-05-16 09:01 | PD.DPN ---
Documentation for date of: 05/16/24 Pronouncement Note Date and Time of Date of : 05/16/24 Time of : 08:48 PCOD Preliminary cause of : Cardiopulmonary arrest Contributing Factors (1) COPD exacerbation: (2) Pneumonia: (3) CHF (congestive heart failure): (4) A-fib: (5) Atrial fibrillation: (6) Acute pulmonary edema: Additional Data Confirmation of : no pulse, no respirations, no heart sounds and pupils fixed and dilated Family: at bedside Attending physician: Tre Alvarenga MD Was code activated?: No (On comfort care)
--- NOTE | 2024-05-16 14:05 | DES_ITS ---
Documentation for date of: 05/16/24 Summary Date and Time Date of admission: 05/10/24 8:48 Summary Hospital Course: 88-year-old female with a significant medical history including chronic heart failurewith an ejection fraction of 30-35%, atrial fibrillation status post pacemaker/defibrillator placement, COPD on home oxygen, hypertension , and multiple hospitalizations for exacerbations of her chronic conditions. She was admitted for acute hypoxic respiratory failure, likely due to a combination of CHF exacerbation, COPD exacerbation, and pneumonia. Despite initial treatment and discussions regarding discharge with home health, her condition deteriorated. Over the course of her hospitalization, the patient demonstrated significant clinical deterioration, including worsening mental status, altered consciousness, and poor appetite with minimal oral intake. Despite aggressive management, including antibiotics for pneumonia, diuretics for volume overload, and supportive care, her overall condition continued to decline. There was no evidence of acute infection or other reversible causes at the time of her decline, and her laboratory results improved, but her clinical status remained poor. On 05/14, she developed abdominal pain, likely related to stool impaction, which was treated with an enema, providing temporary relief. She was also experiencing persistent shortness of breath despite diuresis and was on oxygen therapy. On 05/15, the patient's hypoxemia worsened, requiring increasing oxygen support and a change in her respiratory management, but her mental status continued to deteriorate. Although her respiratory function improved somewhat with diuresis and treatment for pneumonia, the patient's mental state remained poor, and she had limited response to reorientation and family visits. Given her overall clinical trajectory, including poor appetite, failure to thrive, and lack of meaningful improvement in mental status, a goals of care discussion was initiated. She was deemed appropriate for a transition to palliative care, considering the advanced nature of her chronic illnesses and the lack of further therapeutic benefit. Despite continued efforts to address her medical issues, including acute on chronic hypoxic respiratory failure, sepsis due to influenza A pneumonia, acute kidney injury (likely secondary to renal congestion), and a urinary tract infection, her clinical course remained unfavorable. Family and the healthcare team agreed that her prognosis was poor, and comfort measures were prioritized. The patient's case was discussed with my attending Dr. Alvarenga and senior Dr. Mattie Bullock MD PGY 1 Senior Resident Attestation: I discussed with and supervised the application support intern physician involved in the care of this patient. I agree with the above discharge. Duy Phelps MD PGY2 Internal Medicine Additional Data Attending physician: Tre Alvarenga MD Visit Providers Provider Primary care physician: Ricky Montanez MD Consults: 05/10/24 15:05 Consult to Cardiology Routine Comment: CHF exacerbation Consulting Provider: Natacha Mason 05/12/24 14:07 Referral Physical Therapy Urgent Comment: Physician Instructions: Diagnosis Contributing Factors (1) COPD exacerbation: (2) Pneumonia: (3) CHF (congestive heart failure): (4) A-fib: (5) Acute pulmonary edema: Discharge Plan Plan Patient Disposition: Prescriptions/Referrals Referrals: Ricky Montanez MD [Primary Care Provider] - Patient/Caregiver Discharge Instructions Print Language: [place]
== END 2024-05-16 08:48 | disposition expired | DRG 871 ==
LOC: SERX 05-10 08:38 → SERHOLD 05-10 11:03 → S2NX 05-10 14:02
PROVIDERS: Emergency Medicine; Student in an Organized Health Care Education/Training Program; Admitting Provider Student in an Organized Health Care Education/Training Program; Emergency Provider Emergency Medicine; PCP Internal Medicine; Visit Provider Student in an Organized Health Care Education/Training Program
DX: A41.89 Other specified sepsis (principal); I50.23 Acute on chronic systolic (congestive) heart failure; J96.21 Acute and chronic respiratory failure with hypoxia; J18.9 Pneumonia, unspecified organism; J10.00 Influenza due to other identified influenza virus with unspecified type of pneumonia; J44.0 Chronic obstructive pulmonary disease with (acute) lower respiratory infection; J44.1 Chronic obstructive pulmonary disease with (acute) exacerbation; I13.0 Hypertensive heart and chronic kidney disease with heart failure and stage 1 through stage 4 chronic kidney disease, or unspecified chronic kidney disease; I42.8 Other cardiomyopathies; N39.0 Urinary tract infection, site not specified; N17.9 Acute kidney failure, unspecified; Z95.810 Presence of automatic (implantable) cardiac defibrillator; Z99.81 Dependence on supplemental oxygen; K21.9 Gastro-esophageal reflux disease without esophagitis; G47.00 Insomnia, unspecified; B96.20 Unspecified Escherichia coli [E. coli] as the cause of diseases classified elsewhere; R62.7 Adult failure to thrive; Z51.5 Encounter for palliative care; Z66 Do not resuscitate; I48.0 Paroxysmal atrial fibrillation; N18.31 Chronic kidney disease, stage 3a; I46.9 Cardiac arrest, cause unspecified; B95.2 Enterococcus as the cause of diseases classified elsewhere; D69.6 Thrombocytopenia, unspecified; K56.41 Fecal impaction
CPT/HCPCS: 36415; 36600; 71045; 71250; 74018; 74176; 80053; 81001; 82140; 82803; 83605; 83690; 83735; 83880; 84100; 84145; 84484; 85025; 85379; 86331; 86635; 87040; 87077; 87081; 87086; 87186; 87205; 87400; 87502; 87811; 93005; 94640; 94660; 96374; 97162; 99291; A9270; J0456; J1650; J1885; J1940; J2270; J2405; J2470; J2543; J2919; J3420; J3490; J7050